=== PATIENT | female | born 2000 | race Hispanic/Latino ===

== ENCOUNTER 2018-07-05 23:12 | Inpatient (IN) | payer OTHER ==
[~2018-07-05] VITALS: Ht 167.6 cm; Wt 63.4 kg
[2018-07-06 00:42] LABS: BASO # 0.1 10^3/uL (0.0-0.2); EOS # 0.3 10^3/uL (0.0-0.50); EOS % 3.2 % (0.0-3.0); HEMATOCRIT 37.8 % (36.0-47.0); HEMOGLOBIN 12.6 g/dl (12.0-15.5); LYMPH % 36.8 % (24.0-44.0); MEAN CORPUSCULAR HEMOGLOBIN 29.9 pg (27.0-33.0); MEAN CORPUSCULAR HGB CONC 33.3 g/dl (32.0-36.5); MEAN CORPUSCULAR VOLUME 89.6 fl (80.0-96.0); MONO # 0.6 10^3/uL (0.0-0.8); MONO % 6.8 % (0.0-5.0); NEUTROPHILS # 4.3 10^3/uL (1.8-7.7); NEUTROPHILS % 52.1 % (36.0-66.0); PLATELET COUNT, AUTOMATED 250 10^3/uL (150-450); RED BLOOD COUNT 4.22 10^6/uL (4.00-5.40); WHITE BLOOD COUNT 8.2 10^3/uL (4.0-10.0)
[2018-07-06 01:35] LABS: ALBUMIN 3.5 GM/DL (3.2-5.2); ALT/SGPT 44 U/L (12-78); BILIRUBIN,DIRECT < 0.1 MG/DL (0.0-0.2); BILIRUBIN,TOTAL 0.3 MG/DL (0.2-1.0); BLOOD UREA NITROGEN 14 MG/DL (7-18); CALCIUM LEVEL 8.3 MG/DL (8.5-10.1); CARBON DIOXIDE LEVEL 24 MEQ/L (21-32); CHLORIDE LEVEL 108 MEQ/L (98-107); CPK CREATINE PHOSPHOKINASE 7562 U/L (26-192); CREATININE FOR GFR 0.81 MG/DL (0.55-1.30); GLUCOSE, FASTING 91 MG/DL (70-100); LIPASE 189 U/L (73-393); POTASSIUM SERUM 3.6 MEQ/L (3.5-5.1); SODIUM LEVEL 139 MEQ/L (136-145); TOTAL PROTEIN 7.4 GM/DL (6.4-8.2)
[2018-07-06] MEDS ORDERED: NS 1,830 ML in APPROPRIATE DILUENT 1 EA IV ONE (02:15)
[2018-07-06 02:21] LABS: HCG, SERUM QUALITATIVE NEGATIVE (NEGATIVE)
[2018-07-06 02:37] LABS: INR 0.96; PROTHROMBIN TIME 12.9 SECONDS (12.1-14.4)
[2018-07-06 02:38] LABS: PARTIAL THROMBOPLASTIN TIME 28.2 SECONDS (25.4-37.6)
[2018-07-06] MEDS ORDERED: ISOVUE-370 76% 100ML VIAL (Q9967) As Ordered ONE (03:11)
--- NOTE | 2018-07-06 04:12 | REPVR ---
EXAM: CT Abdomen and Pelvis With Contrast EXAM DATE/TIME: 07/06/2018 3:07 AM CLINICAL HISTORY: 17 years old, female; Abdominal pain; Localized; Lower; Additional info: Lower abd pain, vomiting TECHNIQUE: Imaging protocol: Axial computed tomography images of the abdomen and pelvis with intravenous contrast. Coronal and sagittal reformatted images were created and reviewed. Radiation optimization: All CT scans at this facility use at least one of these dose optimization techniques: automated exposure control; mA and/or kV adjustment per patient size (includes targeted exams where dose is matched to clinical indication); or iterative reconstruction. Contrast material: ISO; Contrast volume: 100 ml; Contrast route: AC; COMPARISON: No relevant prior studies available. FINDINGS: ABDOMEN: Liver: There is low attenuation adjacent to the falciform ligament of the liver consistent with focal fatty infiltration. Gallbladder and bile ducts: The gallbladder is contracted with no stones. There is gallbladder wall enhancement and pericholecystic fluid or wall edema. Pancreas: Normal. No ductal dilation. Spleen: Normal. No splenomegaly. Adrenals: Normal. No mass. Kidneys and ureters: Normal. No hydronephrosis. Stomach and bowel: Normal. No obstruction. No mucosal thickening. Appendix: A normal appendix is seen. PELVIS: Bladder: Unremarkable as visualized. Reproductive: Right ovarian follicle measuring 17 mm. ABDOMEN and PELVIS: Intraperitoneal space: Normal. No free air. No significant fluid collection. Bones/joints: No acute fracture. No dislocation. Soft tissues: Unremarkable. Vasculature: Normal. No abdominal aortic aneurysm. Lymph nodes: Normal. No enlarged lymph nodes. IMPRESSION: 1. Contracted gallbladder with no stones. There is mucosal enhancement with pericholecystic fluid or wall edema. 2. Otherwise negative CT abdomen/pelvis. Electronically signed by: Keegan Potter On 07/06/2018 04:11:37 AM
[2018-07-06] MEDS ORDERED: LR 1,000 ML IV SCH (04:30)
--- NOTE | 2018-07-06 05:03 | REPVR ---
EXAM: US Abdomen Limited, Right Upper Quadrant EXAM DATE/TIME: 07/06/2018 4:54 AM CLINICAL HISTORY: 17 years old, female; Abdominal pain; Epigastric; Additional info: Abnormal gb on CT, vomiting TECHNIQUE: Imaging protocol: Real-time ultrasound of the abdomen with image documentation. Examination was focused on the right upper quadrant. COMPARISON: CT ABD/PEL W/IV CONTRAST ONLY 07/06/2018 3:08 AM FINDINGS: Liver: The liver demonstrates no focal defects. Ill-defined echogenic area in the right hepatic lobe measuring 2.9 x 1.3 x 3.1 cm which may reflect a hemangioma. Gallbladder: Contracted gallbladder with wall thickening measuring 7 mm. No gallstones are seen. There is a negative sono Rodriguez's sign. Common bile duct: The common bile duct measures 3 mm. Pancreas: The pancreas is normal. Right kidney: The right kidney is normal measuring 11.5 cm IMPRESSION: 1. Contracted gallbladder with wall thickening measuring 7 mm. No gallstones are seen and there is a negative sono Rodriguez's sign. 2. Ill-defined echogenic area in the right hepatic lobe measuring 2.9 x 1.3 x 3.1 cm which may reflect a hemangioma. Electronically signed by: Keegan Potter On 07/06/2018 05:02:45 AM
[2018-07-06] MEDS ORDERED: METAMUCIL (PSYLLIUM) PACKET PO PRN (06:15)
[2018-07-06] MEDS ORDERED: MOM 30ML SUSPENSION UDC PO PRN (06:15)
[2018-07-06] MEDS ORDERED: ACETAMINOPHEN TAB 650MG DOSE (2X325MG) PO PRN (06:15)
--- NOTE | 2018-07-06 06:29 | HPEPDOC ---
General Date of Admission July 05, 2018 at 23:13 Chief Complaint The patient is a 17-year-old female admitted with a reason for visit of Rhabdomy olysis. Source: Patient Exam Limitations: No limitations Severity: Mild History of Present Illness 17 yo female in without significant medical Hx presented to [facility] ER with nausea, vomiting, diffuse muscle pain, diffuse ecchymosis in extremities, and reported intermittent bladder pain. Pt reported that on 07/04/18 she had physical training in preparation for her PT training test this coming Sunday. R eported diffuse muscle ache, extremity ecchymosis, and intermittent bladder pain since the physical training. She reported the intermittent bladder pain is unrelated to urination, denies dysuria or urgency. She reported little amount of urination when she uses the restroom with frequent urination. Initially urine color is dark yellow and now it's coloring checker color. Reported diffuse muscle soreness including abdominal muscle Denies fever, chills, chest pain, dyspnea, cough, abdominal pain, or numbness/tingling/loss of sensation. Allergies Coded Allergies: No Known Allergies (Unverified , 07/06/18) Past Medical History Medical History Denies Surgical History Denies Family History Significant Family History: Cancer (paternal grandmother breast CA), Diabetes (maternal grandmother) Social History * Smoker: current smoker (pt rolls her own cig) Alcohol: Denies Drugs: denies Recent Travel/Sick Contacts: Denies: Recent sick contacts lives at home with . In A-FIB/CHADSVASC A-FIB History Current/History of A-Fib/PAF?: No Review of Systems Constitutional: Reports: Fatigue (reported d/t lack of sleep overnight, no fatigue prior); Denies: Chills, Fever Skin: Reports: Bruising; Denies: Breakdown Pulmonary: Denies: Dyspnea, Cough, Pleuritic Chest Pain Cardiovascular: Denies: Chest Pain, Palpitations Gastrointestinal: Reports: Nausea, Vomiting, Constipation (constipation one small bowel movement every 3 days); Denies: Abdominal Pain, Diarrhea Genitourinary: Reports: Frequency; Denies: Dysuria, Incontinence Hematologic: Reports: Bruising Neurological: Denies: Numbness Physical Examination General Exam: Positive: Alert, Cooperative, Mild Distress Eye Exam: Positive: Conjunctiva & lids normal; Negative: Sclera icteric ENT Exam: Positive: Atraumatic, Mucous membr. moist/pink Neck Exam: Positive: Supple Chest Exam: Positive: Clear to auscultation, Normal air movement; Negative: Rales, Rhonchi, Wheezing Heart Exam: Positive: Rate Normal, Regular Rhythm, Normal S1, Normal S2; Negative: Murmurs Abdomen Exam: Positive: BS Hypoactive, Soft, Tenderness (increased soreness upon palpation in the abdomen region) Extremity Exam: Positive: Normal pulses, Other; Negative: Cyanosis, Edema, Swelling Skin Exam: Positive: Nl turgor and temperature, Other skin issue (diffuse ecchymosis in 4 extremities noted) Neuro Exam: Positive: Normal Speech, Normal Tone Psych Exam: Positive: Mental status NL, Mood NL, Oriented x 3 Vital Signs Vital Signs Date Time Temp Pulse Resp B/P (MAP) Pulse Ox O2 Delivery O2 Flow Rate FiO2 07/06/18 01:53 07/05/18 23:13 97.4 64 16 98 Room Air Laboratory Data Labs 24H Laboratory Tests 2 07/06/18 00:23: Immature Granulocyte % (Auto) 0.1, White Blood Count 8.2, Red Blood Count 4.22, Hemoglobin 12.6, Hematocrit 37.8, Mean Corpuscular Volume 89.6, Mean Corpuscular Hemoglobin 29.9, Mean Corpuscular Hemoglobin Concent 33.3, Red Cell Distribution Width 12.9, Platelet Count 250, Neutrophils (%) (Auto) 52.1, Lymphocytes (%) (Auto) 36.8, Monocytes (%) (Auto) 6.8H, Eosinophils (%) (Auto) 3.2H, Basophils (%) (Auto) 1.0, Neutrophils # (Auto) 4.3, Lymphocytes # (Auto) 3.0, Monocytes # (Auto) 0.6, Eosinophils # (Auto) 0.3, Basophils # (Auto) 0.1, Nucleated Red Blood Cells % (auto) 0.0, Urine Color YELLOW, Urine Appearance HAZY, Urine pH 6.0, Urine Specific [place] 1.018, Urine Protein 1+H, Urine Glucose (UA) NEGATIVE, Urine Ketones 1+H, Urine Blood NEGATIVE, Urine Nitrite NEGATIVE, Urine Bilirubin NEGATIVE, Urine Urobilinogen 0.2, Urine Leukocyte Esterase NEGATIVE, Urine WBC (Auto) 4H, Urine RBC (Auto) 5H, Urine Hyaline Casts (Auto) 1, Urine Bacteria (Auto) 1+H, Urine Squamous Epithelial Cells 12, Urine Transitional Epithelial Cells 2, Urine Mucus (Auto) MODERATE, Urine Sperm (Auto) , Anion Gap 7L, Calcium Level 8.3L, Aspartate Amino Transf (AST/SGOT) 117H, Alanine Aminotransferase (ALT/SGPT) 44, Alkaline Phosphatase 102, Total Bilirubin 0.3, Direct Bilirubin < 0.1, Total Creatine Kinase 7562H, Total Protein 7.4, Albumin 3.5, Albumin/Globulin Ratio 0.90L, Lipase 189, Human Chorionic Gonadotropin, Qual NEGATIVE 07/06/18 02:19: Prothrombin Time 12.9, Prothromb Time International Ratio 0.96, Activated Partial Thromboplast Time 28.2 07/06/18 04:18: Urine Myoglobin NEGATIVE CBC/BMP Laboratory Tests 07/06/18 00:23 Red Blood Count 4.22, Mean Corpuscular Volume 89.6, Mean Corpuscular Hemoglobin 29.9, Mean Corpuscular Hemoglobin Concent 33.3, Red Cell Distribution Width 12.9, Neutrophils (%) (Auto) 52.1, Lymphocytes (%) (Auto) 36.8, Monocytes (%) (Auto) 6.8 H, Eosinophils (%) (Auto) 3.2 H, Basophils (%) (Auto) 1.0, Neut rophils # (Auto) 4.3, Lymphocytes # (Auto) 3.0, Monocytes # (Auto) 0.6, Eosinophils # (Auto) 0.3, Basophils # (Auto) 0.1 Problems (1) Rhabdomyolysis Status: Acute Problem Text: rhabdomyolysis likely from physical activities. Small amount of urine with frequent urinations, nausea, vomiting, diffuse muscle soreness, ecch ymosis, and elevated total creatinine kinase. NO urine myoglobin. No CHRISTINE. IV NS at 200ml/hr, may increase rate if creatinine kinase did not improve. Vital signs as scheduled and cont to monitor the pt. (2) Constipation Problem Text: reported small amount of hard pellet stool once every 3 days. Denies abdominal pain. Reported nausea/vomiting for about 2 weeks which was prior to physical training . Metamucil and milk of magnesia ordered. CT abd/pelvis report no signs of bowel obstruction. Cont to monitor the pt Plan / VTE VTE Prophylaxis Ordered?: Yes (TEDS and SCD) Plan IVF: Initiate Diagnostics: Repeat Labs in ITALIA LEWIS DO July 06, 2018 06:29
[2018-07-06 06:30] VITALS: BP 132/84
[2018-07-06] MEDS ORDERED: NS 1,000 ML IV SCH (06:30)
[2018-07-06 08:00] VITALS: BP 125/66
[2018-07-06] MEDS ORDERED: traMADol 50 MG TAB PO ONE (10:30)
[2018-07-06] MEDS ORDERED: FIORICET TAB PO ONE (10:30)
[2018-07-06] MEDS: NS 1,000 ML IV SCH ×2 (12:35→21:58)
[2018-07-06 16:00] VITALS: BP 124/61
[2018-07-06] MEDS: traMADol 50 MG TAB PO PRN (18:58)
[2018-07-06] MEDS: FIORICET TAB PO PRN (19:57)
[2018-07-06 20:00] VITALS: BP 135/79
[2018-07-07] VITALS: BP 121/62
[2018-07-07] MEDS: NS 1,000 ML IV SCH ×3 (06:15→17:13)
[2018-07-07 06:30] LABS: HEMATOCRIT 36.1 % (36.0-47.0); HEMOGLOBIN 11.8 g/dl (12.0-15.5); MEAN CORPUSCULAR HEMOGLOBIN 29.5 pg (27.0-33.0); MEAN CORPUSCULAR HGB CONC 32.7 g/dl (32.0-36.5); MEAN CORPUSCULAR VOLUME 90.3 fl (80.0-96.0); PLATELET COUNT, AUTOMATED 213 10^3/uL (150-450)
[2018-07-07 07:13] LABS: BLOOD UREA NITROGEN 2 MG/DL (7-18); CARBON DIOXIDE LEVEL 27 MEQ/L (21-32); CHLORIDE LEVEL 110 MEQ/L (98-107); CPK CREATINE PHOSPHOKINASE 6905 U/L (26-192); CREATININE FOR GFR 0.65 MG/DL (0.55-1.30); GLUCOSE, FASTING 78 MG/DL (70-100); POTASSIUM SERUM 3.7 MEQ/L (3.5-5.1); SODIUM LEVEL 142 MEQ/L (136-145)
[2018-07-07 08:08] VITALS: BP 110/62
[2018-07-07] MEDS: FIORICET TAB PO PRN ×3 (08:12→21:07)
[2018-07-07] MEDS ORDERED: NS 1,000 ML IV ONE (08:30)
--- NOTE | 2018-07-07 10:24 | IPNPDOC ---
Date Seen The patient was seen on 07/07/18. Progress Note SUBJECTIVE: Pt still c/o generalized muscle aches and decreased oral liquid intake. appetite has been poor but no nausea or vomiting. still c/o urinary urgency and frequency despite negative ua. denies any vaginal discharge, or history of gc/chlamydia. ck still >6000. respiratory panel is negative and creatinine wnl. OBJECTIVE: Physical Examination VITALS: PLS SEE BELOW General Exam: Positive: Alert, Cooperative, Mild Distress Eye Exam: Positive: Conjunctiva & lids normal; Negative: Sclera icteric ENT Exam: Positive: Atraumatic, Mucous membr. moist/pink Neck Exam: Positive: Supple Chest Exam: Positive: Clear to auscultation, Normal air movement; Negative: Rales, Rhonchi, Wheezing Heart Exam: Positive: Rate Normal, Regular Rhythm, Normal S1, Normal S2; Negative: Murmurs Abdomen Exam: Positive: BS Hypoactive, Soft, Tenderness (increased soreness upon palpation in the abdomen region) Extremity Exam: Positive: Normal pulses, Other; Negative: Cyanosis, Edema, Swelling Skin Exam: Positive: Nl turgor and temperature, Other skin issue (diffuse ecchymosis in 4 extremities noted) Neuro Exam: Positive: Normal Speech, Normal Tone Psych Exam: Positive: Mental status NL, Mood NL, Oriented x 3 LABORATORY DATA, IMAGING STUDIES, MICROBIOLOGY: PLS SEE BELOW ASSESSMENT AND PLAN: 17 yo female in without significant medical Hx presented to [facility] ER with nausea, vomiting, diffuse muscle pain, diffuse ecchymosis in extremities, and reported intermittent bladder pain. Pt reported that on 07/04/18 she had physical training in preparation for her PT training test this coming Sunday. Reported diffuse muscle ache, extremity ecchymosis, and intermittent bladder pain since the physical training. She reported the intermittent bladder pain is unrelated to urination, denies dysuria or urgency. She reported little amount of urination when she uses the restroom with frequent urination. Initially urine color is dark yellow and now it's dry dip worker color. Reported diffuse muscle soreness including abdominal muscle Denies fever, chills, chest pain, dyspnea, cough, abdominal pain, or numbness/tingling/loss of sensation. Rhabdomyolysis rhabdomyolysis likely from physical activities. Small amount of urine with frequent urinations, nausea, vomiting, diffuse muscle soreness, ecchymosis, and elevated total creatinine kinase. NO urine myoglobin. No CHRISTINE. IV NS at 200ml/hr, may increase rate if creatinine kinase did not improve. Vital signs as scheduled and cont to monitor the pt. Pt still c/o generalized muscle aches and decreased oral liquid intake. appetite has been poor but no nausea or vomiting. still c/o urinary urgency and frequency despite negative ua. denies any vaginal discharge, or history of gc/chlamydia. ck still >6000. respiratory panel is negative and creatinine wnl. urinary urgency without vaginal discharge discussed possibility of std especially chlamydia. pt denies any vaginal discharge, and refuses testing at this time. ck still >6000. respiratory panel is negative and creatinine wnl. Constipation Problem Text: reported small amount of hard pellet stool once every 3 days. Denies abdominal pain. Reported nausea/vomiting for about 2 weeks which was prior to physical training . Metamucil and milk of magnesia ordered. CT abd/pelvis report no signs of bowel obstruction. Cont to monitor the pt Plan / VTE VTE Prophylaxis Ordered?: Yes (TEDS and SCD) A-FIB/CHADSVASC A-FIB History Current/History of A-Fib/PAF?: No Current Oral Anticoagulant The: No VS, I&O, 24H, Fishbone Vital Signs/I&O Vital Signs Date Time Temp Pulse Resp B/P (MAP) Pulse Ox O2 Delivery O2 Flow Rate FiO2 07/07/18 00:00 97.7 65 18 121/62 (81) 100 07/06/18 06:24 Room Air I&O- Last 24 Hours up to 6 AM 07/07/18 06:00 Intake Total 4430 ml Output Total 3800 ml Balance 630 ml Laboratory Data 24H LABS Laboratory Tests 2 07/06/18 12:51: Total Creatine Kinase 7202H 07/07/18 06:11: Total Creatine Kinase 6905H, Nucleated Red Blood Cells % (auto) 0.0, Anion Gap 5L, Blood Urea Nitrogen 2#L, Creatinine 0.65, Sodium Level 142, Potassium Level 3.7, Chloride Level 110H, Carbon Dioxide Level 27, Calcium Level 8.0L CBC/BMP Laboratory Tests 07/07/18 06:11 Red Blood Count 4.00, Mean Corpuscular Volume 90.3, Mean Corpuscular Hemoglobin 29.5, Mean Corpuscular Hemoglobin Concent 32.7, Red Cell Distribution Width 12.8, Calcium Level 8.0 L Microbiology Microbiology 07/06/18 Respiratory Virus Panel (PCR) ([facility]) - Final, Complete JAMI ALLEN MD July 07, 2018 07:18
[2018-07-07] MEDS: ONDANSETRON 4MG/2ML VIAL (J2405) IV PRN ×2 (14:36→23:16)
[2018-07-07 16:06] VITALS: BP 125/65
[2018-07-07 18:09] LABS: CHLAMYDIA DNA AMPLIFICATION NEGATIVE (NEGATIVE); GC DNA AMPLIFICATION NEGATIVE (NEGATIVE)
[2018-07-07 20:00] VITALS: BP 109/59
[2018-07-07] MEDS: traMADol 50 MG TAB PO PRN (21:07)
[2018-07-08] VITALS: BP 113/59
[2018-07-08] MEDS: NS 1,000 ML IV SCH ×6 (01:00→18:38)
[2018-07-08] MEDS: PERCOCET 5MG/325MG TAB PO PRN ×4 (01:18→18:49)
[2018-07-08] MEDS: ONDANSETRON 4MG/2ML VIAL (J2405) IV PRN ×3 (06:42→23:23)
[2018-07-08 06:53] LABS: HEMATOCRIT 36.3 % (36.0-47.0); HEMOGLOBIN 12.1 g/dl (12.0-15.5); MEAN CORPUSCULAR HEMOGLOBIN 29.5 pg (27.0-33.0); MEAN CORPUSCULAR HGB CONC 33.3 g/dl (32.0-36.5); MEAN CORPUSCULAR VOLUME 88.5 fl (80.0-96.0); PLATELET COUNT, AUTOMATED 218 10^3/uL (150-450); WHITE BLOOD COUNT 6.2 10^3/uL (4.0-10.0)
[2018-07-08 07:14] LABS: BLOOD UREA NITROGEN 3 MG/DL (7-18); CALCIUM LEVEL 7.7 MG/DL (8.5-10.1); CARBON DIOXIDE LEVEL 27 MEQ/L (21-32); CHLORIDE LEVEL 108 MEQ/L (98-107); CREATININE FOR GFR 0.65 MG/DL (0.55-1.30); GLUCOSE, FASTING 77 MG/DL (70-100); SODIUM LEVEL 140 MEQ/L (136-145)
[2018-07-08] MEDS ORDERED: PHENAZOPYRIDINE 100 MG TAB PO ONE (07:45)
[2018-07-08] MEDS ORDERED: POTASSIUM CHLORIDE 10 MEQ SR TABLET PO ONE (08:00)
[2018-07-08 08:24] VITALS: BP 123/78
[2018-07-08 09:14] LABS: CPK CREATINE PHOSPHOKINASE 7813 U/L (26-192)
[2018-07-08] MEDS ORDERED: NS 1,000 ML IV ONE (10:15)
--- NOTE | 2018-07-08 10:19 | IPNPDOC ---
Date Seen The patient was seen on 07/08/18. Progress Note SUBJECTIVE: c/o abd pain/constipation, and vomitted this am with bm after bowel regimen. k is low. Pt still c/o generalized muscle aches and decreased oral liquid intake. appetite has been poor.. still c/o urinary urgency and frequency despite negative ua. denies any vaginal discharge, or history of gc/chlamydia. urine gc/chl negative. ck still 7800. respiratory panel is negative and creatinine wnl. OBJECTIVE: Physical Examination VITALS: PLS SEE BELOW General Exam: Positive: Alert, Cooperative, Mild Distress Eye Exam: Positive: Conjunctiva & lids normal; Negative: Sclera icteric ENT Exam: Positive: Atraumatic, Mucous membr. moist/pink Neck Exam: Positive: Supple Chest Exam: Positive: Clear to auscultation, Normal air movement; Negative: Rales, Rhonchi, Wheezing Heart Exam: Positive: Rate Normal, Regular Rhythm, Normal S1, Normal S2; Negative: Murmurs Abdomen Exam: Positive: BS Hypoactive, Soft, Tenderness (increased soreness upon palpation in the abdomen region) Extremity Exam: Positive: Normal pulses, Other; Negative: Cyanosis, Edema, Swelling Skin Exam: Positive: Nl turgor and temperature, Other skin issue (diffuse ecchymosis in 4 extremities noted) Neuro Exam: Positive: Normal Speech, Normal Tone Psych Exam: Positive: Mental status NL, Mood NL, Oriented x 3 LABORATORY DATA, IMAGING STUDIES, MICROBIOLOGY: PLS SEE BELOW ASSESSMENT AND PLAN: 17 yo female in without significant medical Hx presented to [facility] ER with nausea, vomiting, diffuse muscle pain, diffuse ecchymosis in extremities, and reported intermittent bladder pain. Pt reported that on 07/04/18 she had physical training in preparation for her PT training test this coming Sunday. Reported diffuse muscle ache, extremity ecchymosis, and intermittent bladder pain since the physical training. She reported the intermittent bladder pain is unrelated to urination, denies dysuria or urgency. She reported little amount of urination when she uses the restroom with frequent urination. Initially urine color is dark yellow and now it's barkeeper color. Reported diffuse muscle soreness including abdominal muscle Denies fever, chills, chest pain, dyspnea, cough, abdominal pain, or numbness/tingling/loss of sensation. Rhabdomyolysis rhabdomyolysis likely from physical activities. Small amount of urine with frequent urinations, nausea, vomiting, diffuse muscle soreness, ecchymosis, and elevated total creatinine kinase. NO urine myoglobin. No CHRISTINE. IV NS at 200ml/hr, may increase rate if creatinine kinase did not improve. Vital signs as scheduled and cont to monitor the pt. Pt still c/o generalized muscle aches and decreased oral liquid intake. appetite has been poor but no nausea or vomiting. still c/o urinary urgency and frequency despite negative ua. denies any vaginal discharge, or history of gc/chlamydia. ck still >6000. respiratory panel is negative and creatinine wnl. urinary urgency without vaginal discharge discussed possibility of std especially chlamydia. pt denies any vaginal discharge, and refuses testing at this time. ck still >6000. respiratory panel is negative and creatinine wnl. Constipation s/p bowel regimen with loose bm and emesis Problem Text: reported small amount of hard pellet stool once every 3 days. Denies abdominal pain. Reported nausea/vomiting for about 2 weeks which was prior to physical training . Metamucil and milk of magnesia ordered. CT abd/pelvis report no signs of bowel obstruction. Cont to monitor the pt Hypokalemia supplemented. check mg and supplement if <2. Plan / VTE VTE Prophylaxis Ordered?: Yes (TEDS and SCD) A-FIB/CHADSVASC SCREEN A-FIB/CHADSVASC A-FIB History Current/History of A-Fib/PAF?: No Current Oral Anticoagulant The: No A-FIB/CHADSVASC A-FIB History Current/History of A-Fib/PAF?: No Current Oral Anticoagulant The: No VS, I&O, 24H, Fishbone Vital Signs/I&O Vital Signs Date Time Temp Pulse Resp B/P (MAP) Pulse Ox O2 Delivery O2 Flow Rate FiO2 07/08/18 08:24 98.0 66 16 123/78 (93) 98 07/06/18 06:24 Room Air I&O- Last 24 Hours up to 6 AM 07/08/18 06:00 Intake Total 5160 ml Output Total 4250 ml Balance 910 ml Laboratory Data 24H LABS Laboratory Tests 2 07/07/18 16:12: Chlamydia trachomatis DNA ([facility]) NEGATIVE, Neisseria gonorrhoeae DNA ([facility]) NEGATIVE 07/08/18 06:12: Nucleated Red Blood Cells % (auto) 0.0, Anion Gap 5L, Blood Urea Nitrogen 3L, Creatinine 0.65, Sodium Level 140, Potassium Level 3.0L, Chloride Level 108H, Carbon Dioxide Level 27, Calcium Level 7.7L, Total Creatine Kinase 7813H 07/08/18 06:40: Urine Color STRAW, Urine Appearance CLEAR, Urine pH 7.0, Urine Specific [place] 1.008, Urine Protein NEGATIVE, Urine Glucose (UA) NEGATIVE, Urine Ketones 1+H, Urine Blood NEGATIVE, Urine Nitrite NEGATIVE, Urine Bilirubin NEGATIVE, Urine Urobilinogen 0.2, Urine Leukocyte Esterase NEGATIVE, Urine WBC (Auto) 3, Urine RBC (Auto) 1, Urine Hyaline Casts (Auto) 0, Urine Bacteria (Auto) NEGATIVE, Urine Squamous Epithelial Cells 3, Urine Sperm (Auto) CBC/BMP Laboratory Tests 07/08/18 06:12 Red Blood Count 4.10, Mean Corpuscular Volume 88.5, Mean Corpuscular Hemoglobin 29.5, Mean Corpuscular Hemoglobin Concent 33.3, Red Cell Distribution Width 12.8, Calcium Level 7.7 L Microbiology Microbiology 07/06/18 Respiratory Virus Panel (PCR) ([facility]) - Final, Complete JAMI ALLEN MD July 08, 2018 10:19
[2018-07-08 16:55] VITALS: BP 104/56
[2018-07-08] MEDS: PHENAZOPYRIDINE 100 MG TAB PO SCH ×2 (17:18→20:27)
[2018-07-08] MEDS: traMADol 50 MG TAB PO PRN ×2 (17:19→23:25)
[2018-07-08 19:39] LABS: BLOOD UREA NITROGEN 2 MG/DL (7-18); CALCIUM LEVEL 7.7 MG/DL (8.5-10.1); CARBON DIOXIDE LEVEL 25 MEQ/L (21-32); CHLORIDE LEVEL 115 MEQ/L (98-107); CPK CREATINE PHOSPHOKINASE 6331 U/L (26-192); GLUCOSE, FASTING 90 MG/DL (70-100); POTASSIUM SERUM 4.1 MEQ/L (3.5-5.1); SODIUM LEVEL 144 MEQ/L (136-145)
[2018-07-08 20:00] VITALS: BP 128/75
[2018-07-09] VITALS: BP 140/75
[2018-07-09] MEDS: NS 1,000 ML IV SCH ×3 (01:27→14:00)
[2018-07-09 07:10] LABS: HEMOGLOBIN 11.4 g/dl (12.0-15.5); MEAN CORPUSCULAR HEMOGLOBIN 30.1 pg (27.0-33.0); MEAN CORPUSCULAR HGB CONC 32.6 g/dl (32.0-36.5); MEAN CORPUSCULAR VOLUME 92.3 fl (80.0-96.0); PLATELET COUNT, AUTOMATED 211 10^3/uL (150-450); RED BLOOD COUNT 3.79 10^6/uL (4.00-5.40); WHITE BLOOD COUNT 7.2 10^3/uL (4.0-10.0)
[2018-07-09 08:00] VITALS: BP 111/58
[2018-07-09 08:02] LABS: BLOOD UREA NITROGEN 2 MG/DL (7-18); CALCIUM LEVEL 7.7 MG/DL (8.5-10.1); CARBON DIOXIDE LEVEL 26 MEQ/L (21-32); CHLORIDE LEVEL 112 MEQ/L (98-107); CPK CREATINE PHOSPHOKINASE 4310 U/L (26-192); CREATININE FOR GFR 0.73 MG/DL (0.55-1.30); GLUCOSE, FASTING 94 MG/DL (70-100); POTASSIUM SERUM 3.9 MEQ/L (3.5-5.1); SODIUM LEVEL 143 MEQ/L (136-145)
[2018-07-09] MEDS: PHENAZOPYRIDINE 100 MG TAB PO SCH ×3 (08:43→20:24)
[2018-07-09] MEDS: PANTOPRAZOLE 40MG TAB (PROTONIX) PO SCH (09:52)
[2018-07-09] MEDS: PERCOCET 5MG/325MG TAB PO PRN ×2 (09:55→16:42)
[2018-07-09 13:36] LABS: H PYLORI QUALITATIVE IgG NEGATIVE (NEGATIVE)
[2018-07-09 14:16] LABS: ANTI DOUBLE STRAND-DNA AB <1 IU/mL (0-9); ANTINUCLEAR ANTIBODIES DIRECT Positive (Negative); RNP ANTIBODIES 1.1 AI (0.0-0.9); SJOGREN'S ANTI SS-A <0.2 AI (0.0-0.9); SJOGREN'S ANTI SS-B <0.2 AI (0.0-0.9); SMITH ANTIBODIES <0.2 AI (0.0-0.9)
--- NOTE | 2018-07-09 14:19 | IPNPDOC ---
Text Note Date of Service The patient was seen on 07/09/18. NOTE DATE: 07/09/18 LEANDER Thacker was seen and examined at bedside this morning. She is lying in bed, answering questions appropriately. No acute events overnight. She complains of diffuse body aches, mild abdominal pain, and nausea. Reports an episode of vomiting and diarrhea yesterday after taking Miralax. Has not vomited since. She also reports urinary urgency and frequency. Most prominent right after she voids. Otherwise denies fever, chills, shortness of breath, cough, chest pain, MEDICATIONS: (see below) ALLERGIES: (see below) OBJECTIVE PHYSICAL EXAM VITALS: (see below) GENERAL: Alert and oriented x3. No acute distress. HEENT: Normocephalic, atraumatic. PERRLA. Sclera nonicteric. Conjunctiva without injection. Mucous membranes moist. CARDIOVASCULAR: Regular rate and rhythm. No murmurs, rubs, or gallops. Normal S1 & S2. No JVD LUNGS: Clear to auscultation bilaterally. No wheezes, rhonchi, or rales. ABDOMEN: Soft, nondistended. Mild tenderness to palpation of left upper quadrant and epigastric area. Normoactive bowel sounds EXTREMITIES: Without lower extremity edema. Dorsalis pedis pulse +2. Diffuse ecchymosis present on forearms and legs bilaterally. NEURO: Mood and affect appropriate. Cranial nerves II-XII grossly intact. 5/5 muscle strength bilaterally. No sensory deficits. Reflexes equal throughout. LABS: (see below) ASSESSMENT This is a 17-year-old female who presented with diffuse body aches and ecchymosis in her bilateral extremities after PT and also ongoing nausea and abdominal pain found to have an elevated CK-MB > 3x the upper limit of normal. PLAN Rhabdomyolysis likely secondary to physical activity - Patient states she "pushed herself" in her recent PT session. - Total creatinine kinase trending down. Urine myoglobin was negative however this does not rule out rhabdomyolysis - No CHRISTINE - Continue IV fluid resuscitation Urinary urgency - UA without evidence of infection - GC/Chlamydia serology negative - Recommend outpatient follow-up with urology Nausea/vomiting - Ongoing nausea, constipation, and decreased appetite x 2 weeks. Associated abdominal pain. CT showed no signs of bowel obstruction. Likely secondary to gastritis. - H. pylori antibodies pending - Will start Protonix DVT porphylaxis - c/w SCDs/TEDs A-FIB/CHADSVASC A-FIB History Current/History of A-Fib/PAF?: No VS,Fishbone, I+O VS, Fishbone, I+O Laboratory Tests 07/08/18 18:09 Calcium Level 7.7 L 07/09/18 06:50 Calcium Level 7.7 L, Red Blood Count 3.79 L, Mean Corpuscular Volume 92.3, Mean Corpuscular Hemoglobin 30.1, Mean Corpuscular Hemoglobin Concent 32.6, Red Cell Distribution Width 13.2 Vital Signs Date Time Temp Pulse Resp B/P (MAP) Pulse Ox O2 Delivery O2 Flow Rate FiO2 07/09/18 10:26 16 07/09/18 08:00 98.3 71 111/58 (75) 97 07/06/18 06:24 Room Air I&O- Last 24 Hours up to 6 AM 07/09/18 06:00 Intake Total 5691 ml Output Total 4500 ml Balance 1191 ml GME ATTESTATION GME ATTESTATION My faculty preceptor for this patient encounter was physically present during the encounter and was fully available. All aspects of the patient interview, examination, medical decision making process, and medical care plan development were reviewed and approved by the faculty preceptor. The faculty preceptor is aware and concurs with the plan as stated in the body of this note and will attest to such by his/her cosignature. ATTENDING NOTE I, Faviola Breaux, have both independently examined this patient as well as reviewed the documentation. I have discussed in detail with the resident the findings and plan of treatment as documented by the resident. I agree with their findings and treatment plan. I will continue to follow the patient and offer further guidance to the patients care as necessary during this hospital stay. GERBER DENT July 09, 2018 14:19 FAVIOLA BREAUX MD July 09, 2018 18:56
[2018-07-09 16:57] VITALS: BP 113/62
[2018-07-09 20:00] VITALS: BP 130/82
[2018-07-10] MEDS: NS 1,000 ML IV SCH ×3 (01:01→09:37)
[2018-07-10] MEDS: traMADol 50 MG TAB PO PRN ×2 (01:01→07:02)
[2018-07-10 01:22] VITALS: BP 118/74
[2018-07-10 07:10] LABS: HEMATOCRIT 37.5 % (36.0-47.0); HEMOGLOBIN 12.2 g/dl (12.0-15.5); MEAN CORPUSCULAR HEMOGLOBIN 29.8 pg (27.0-33.0); MEAN CORPUSCULAR HGB CONC 32.5 g/dl (32.0-36.5); MEAN CORPUSCULAR VOLUME 91.5 fl (80.0-96.0); PLATELET COUNT, AUTOMATED 204 10^3/uL (150-450); WHITE BLOOD COUNT 5.7 10^3/uL (4.0-10.0)
[2018-07-10 07:46] LABS: BLOOD UREA NITROGEN 3 MG/DL (7-18); CALCIUM LEVEL 7.8 MG/DL (8.5-10.1); CARBON DIOXIDE LEVEL 25 MEQ/L (21-32); CHLORIDE LEVEL 109 MEQ/L (98-107); CPK CREATINE PHOSPHOKINASE 2217 U/L (26-192); CREATININE FOR GFR 0.58 MG/DL (0.55-1.30); GLUCOSE, FASTING 78 MG/DL (70-100); POTASSIUM SERUM 3.7 MEQ/L (3.5-5.1); SODIUM LEVEL 140 MEQ/L (136-145)
[2018-07-10 08:00] VITALS: BP 122/69
[2018-07-10] MEDS: PANTOPRAZOLE 40MG TAB (PROTONIX) PO SCH (09:07)
[2018-07-10] MEDS: PHENAZOPYRIDINE 100 MG TAB PO SCH (09:07)
[2018-07-10] MEDS ORDERED: PANT40TA3 PO (09:54)
--- NOTE | 2018-07-10 19:12 | DS.PDOC ---
Discharge Summary General Date of Admission July 07, 2018 at 08:25 Date of Discharge 07/10/18 Attending Physician: FAVIOLA MEJIA MD Discharge Summary PROCEDURES PERFORMED DURING STAY: [None]. ADMITTING DIAGNOSES: 1. Rhabdomyolysis DISCHARGE DIAGNOSES: 1. Rhabdomyolysis 2. Positive AMANDA and LINOTYPE MACHINIST IgG antibody COMPLICATIONS/CHIEF COMPLAINT: Rhabdomyolysis. HISTORY OF PRESENT ILLNESS: Patient is a 17 year old active female with no significant past medical history who presented to the [facility] ER with complaint of nausea, vomiting, diffuse muscle pain, diffuse ecchymosis in extremities, and reported intermittent bladder/urinary discomfort. Patient had stated 07/04/18 she had physical training in preparation for her PT test. Patient had reported that she developed diffuse muscle ache, extremity bruising, and intermittent bladder pain since her physical training. She states that when she tries to urinate only a small amount comes out. She states that she was having some discomfort recently. In the ER the patient was found to have an elevated creatinine kinase. Her urine myoglobin was negative at the time. In addition the patient received a abdominal CT and gall bladder ultrasound. Her CT demonstrated contracted gallbladder with no stones. Mucosal enhancement with pericholecystic fluid or wall edema however, an otherwise negative CT abdomen/pelvis. The patient was fo und to likely have rhabdomyolysis and was admitted to hospitalist service for further evaluation and management HOSPITAL COURSE: Once admitted, the patient received IV fluid hydration. Her creatinine kinase trended down and her muscle pain and weakness started to resolve. The patient did have some nause which did resolve as well. She noted constipation and was started on a bowel regimen. Regarding the patients bladder/urinary discomfort a Urinalysis was ordered which was negative. She received gonorrhea and chlamydia testing which was negative. A vaginitis probe was ordered and is pending. The patient will follow up outpatient for results. Regarding the patients nausea a H. pylori was ordered which is currently pending. In addition, the patient did have a positive AMANDA and LINOTYPE MACHINIST IgG Antibody. The patients symptoms improved overall and she was found fit for discharge. Regarding her positive serology/Immun labs she was referred for outpatient consultation with Rheumatology for possible mixed connective tissue disease. Regarding her bladder discomfort, the patient was given a referral to urology. DISCHARGE MEDICATIONS: Please see below. ALLERGIES: Please see below. PHYSICAL EXAMINATION ON DISCHARGE: VITAL SIGNS: Please see below. GENERAL: Awake alert and oriented. Appears in no acute distress. Lying comfortably in bed. Accompanied by significant other HEENT: Atrumatic normocephalic. Eyes are nonicteric. Trachea is midline. Mucous membranes are pink and moist NECK: No palpable cervical chain lymphadenopathy CARDIOVASCULAR EXAMINATION: Normal S1, S2. Regular rate and rhythm. No clicks rubs or murmurs RESPIRATORY EXAMINATION: Clear vesicular breath sounds bilaterally with good respiratory effort. No wheezes ,rhonci or rales ABDOMINAL EXAMINATION: Soft, nondistended, nontender to palpation of all 4 quadrants. No rebound tenderness or guarding. Positive bowel sounds EXTREMITIES: Bruising of lower and upper extremities bilaterally. Full and equal pulses in bilateral upper and lower extremities SKIN: Multiple bruises in upper and lower extremities NEUROLOGICAL EXAMINATION: No focal neurological deficits. Muscle strength testing 5/5 in upper and lower extremities bilaterally PSYCHIATRIC EXAMINATION: Mood and affect appear appropriate LABORATORY DATA: Please see below. IMAGING: EXAM: CT Abdomen and Pelvis With Contrast EXAM DATE/TIME: 07/06/2018 3:07 AM CLINICAL HISTORY: 17 years old, female; Abdominal pain; Localized; Lower; Additional info: Lower abd pain, vomiting TECHNIQUE: Imaging protocol: Axial computed tomography images of the abdomen and pelvis with intravenous contrast. Coronal and sagittal reformatted images were created and reviewed. Radiation optimization: All CT scans at this facility use at least one of these dose optimization techniques: automated exposure control; mA and/or kV adjustment per patient size (includes targeted exams where dose is matched to clinical indication); or iterative reconstruction. Contrast material: ISO; Contrast volume: 100 ml; Contrast route: AC; COMPARISON: No relevant prior studies available. FINDINGS: ABDOMEN: Liver: There is low attenuation adjacent to the falciform ligament of the liver consistent with focal fatty infiltration. Gallbladder and bile ducts: The gallbladder is contracted with no stones. There is gallbladder wall enhancement and pericholecystic fluid or wall edema. Pancreas: Normal. No ductal dilation. Spleen: Normal. No splenomegaly. Adrenals: Normal. No mass. Kidneys and ureters: Normal. No hydronephrosis. Stomach and bowel: Normal. No obstruction. No mucosal thickening. Appendix: A normal appendix is seen. PELVIS: Bladder: Unremarkable as visualized. Reproductive: Right ovarian follicle measuring 17 mm. ABDOMEN and PELVIS: Intraperitoneal space: Normal. No free air. No significant fluid collection. Bones/joints: No acute fracture. No dislocation. Soft tissues: Unremarkable. Vasculature: Normal. No abdominal aortic aneurysm. Lymph nodes: Normal. No enlarged lymph nodes. IMPRESSION: 1. Contracted gallbladder with no stones. There is mucosal enhancement with pericholecystic fluid or wall edema. 2. Otherwise negative CT abdomen/pelvis. Electronically signed by: Keegan Potter On 07/06/2018 04:11:37 AM EXAM: US Abdomen Limited, Right Upper Quadrant EXAM DATE/TIME: 07/06/2018 4:54 AM CLINICAL HISTORY: 17 years old, female; Abdominal pain; Epigastric; Additional info: Abnormal gb on CT, vomiting TECHNIQUE: Imaging protocol: Real-time ultrasound of the abdomen with image documentation. Examination was focused on the right upper quadrant. COMPARISON: CT ABD/PEL W/IV CONTRAST ONLY 07/06/2018 3:08 AM FINDINGS: Liver: The liver demonstrates no focal defects. Ill-defined echogenic area in the right hepatic lobe measuring 2.9 x 1.3 x 3.1 cm which may reflect a hemangioma. Gallbladder: Contracted gallbladder with wall thickening measuring 7 mm. No gallstones are seen. There is a negative sono Rodriguez's sign. Common bile duct: The common bile duct measures 3 mm. Pancreas: The pancreas is normal. Right kidney: The right kidney is normal measuring 11.5 cm IMPRESSION: 1. Contracted gallbladder with wall thickening measuring 7 mm. No gallstones are seen and there is a negative sono Rodriguez's sign. 2. Ill-defined echogenic area in the right hepatic lobe measuring 2.9 x 1.3 x 3.1 cm which may reflect a hemangioma. Electronically signed by: Keegan Potter On 07/06/2018 05:02:45 AM PROGNOSIS: Good ACTIVITY: [As tolerated]. DIET: As tolerated DISCHARGE PLAN: Patient is to be discharged home. She is to follow-up with her PCP regarding her urine mycoplasma, H. pylori, and hospital follow up. Patient is to follow-up with urology regarding bladder/urinary discomfort. Patient is to follow-up with rheumatology regarding positive RNA antibodies, AMANDA screen positive, and diffuse muscle pain and weakness. DISPOSITION: 01 Home, Self-Care. DISCHARGE INSTRUCTIONS: 1. F/U PCP 1-2 weeks for follow up of lab work 2. F/U urology 3. F/U rheum 4. Remain compliant with treatment plan and medications 5. Return to the ER if you experience any problems DISCHARGE CONDITION: [Stable]. TIME SPENT ON DISCHARGE: Greater than 40 minutes. Vital Signs/I&Os Vital Signs Date Time Temp Pulse Resp B/P (MAP) Pulse Ox O2 Delivery O2 Flow Rate FiO2 07/10/18 08:00 97.6 65 16 122/69 (86) 97 07/06/18 06:24 Room Air I&O- Last 24 Hours up to 6 AM 07/10/18 06:00 Intake Total 7100 ml Output Total 3500 ml Balance 3600 ml Laboratory Data Labs 24H Laboratory Tests 2 07/10/18 06:31: Nucleated Red Blood Cells % (auto) 0.0, Anion Gap 6L, Blood Urea Nitrogen 3L, Creatinine 0.58, Sodium Level 140, Potassium Level 3.7, Chloride Level 109H, Carbon Dioxide Level 25, Calcium Level 7.8L, Total Creatine Kinase 2217H CBC/BMP Laboratory Tests 07/10/18 06:31 Red Blood Count 4.10, Mean Corpuscular Volume 91.5, Mean Corpuscular Hemoglobin 29.8, Mean Corpuscular Hemoglobin Concent 32.5, Red Cell Distribution Width 12.9, Calcium Level 7.8 L Microbiology Microbiology 07/06/18 Respiratory Virus Panel (PCR) (GAUTAM) - Final, Complete Discharge Medications Scheduled Pantoprazole Sodium (Pantoprazole Sodium) 40 Mg Tablet.dr, 40 MG PO DAILY Allergies Coded Allergies: No Known Allergies (Unverified , 07/06/18) GME ATTESTATION GME ATTESTATION My faculty preceptor for this patient encounter was physically present during the encounter and was fully available. All aspects of the patient interview, examination, medical decision making process, and medical care plan development were reviewed and approved by the faculty preceptor. The faculty preceptor is aware and concurs with the plan as stated in the body of this note and will att est to such by his/her cosignature. ATTENDING NOTE I, Faviola Mejia, have both independently examined this patient as well as reviewed the documentation. I have discussed in detail with the resident the findings and plan of treatment as documented by the resident. I agree with their findings and treatment plan. I will continue to follow the patient and offer further guidance to the patients care as necessary during this hospital stay. CELIO HOLLOWAY DO July 10, 2018 19:12 FAVIOLA MEJIA MD July 11, 2018 14:30
[2018-07-12 18:47] LABS: MYCOPLASMA PNEUMONIAE IgG 142 U/mL (0-99); MYCOPLASMA PNEUMONIAE IgM <770 U/mL (0-769)
== END 2018-07-10 11:05 | disposition home or self-care (01) | DRG 558 ==
LOC: M ED 23:12 → M ED INP 23:13 → M PED 07-06 06:30 → OBSVTOIN 07-07 08:25
PROVIDERS: ADMIT Internal Medicine; ATTEND Internal Medicine
DX: M62.82 Rhabdomyolysis (principal); K59.00 Constipation, unspecified

== ENCOUNTER 2018-08-23 11:52 | Emergency (ER) | payer OTHER ==
[~2018-08-23] VITALS: Ht 167.6 cm; Wt 61.4 kg
[~2018-08-23 11:52] MED LIST: PANT40TA3 PO
[2018-08-23 12:44] LABS: BASO % 0.3 % (0.0-1.0); EOS % 0.3 % (0.0-3.0); HEMOGLOBIN 13.4 g/dl (12.0-15.5); LYMPH # 2.6 10^3/uL (1.5-6.5); LYMPH % 28.4 % (24.0-44.0); MEAN CORPUSCULAR HEMOGLOBIN 30.5 pg (27.0-33.0); MEAN CORPUSCULAR HGB CONC 33.5 g/dl (32.0-36.5); MEAN CORPUSCULAR VOLUME 90.9 fl (80.0-96.0); MONO # 0.4 10^3/uL (0.0-0.8); MONO % 4.7 % (0.0-5.0); PLATELET COUNT, AUTOMATED 257 10^3/uL (150-450)
[2018-08-23 12:59] LABS: BLOOD UREA NITROGEN 11 MG/DL (7-18); CALCIUM LEVEL 8.8 MG/DL (8.5-10.1); CARBON DIOXIDE LEVEL 26 MEQ/L (21-32); CHLORIDE LEVEL 106 MEQ/L (98-107); CREATININE FOR GFR 0.78 MG/DL (0.55-1.30); GLUCOSE, FASTING 88 MG/DL (70-100); POTASSIUM SERUM 4.2 MEQ/L (3.5-5.1); SODIUM LEVEL 140 MEQ/L (136-145)
[2018-08-23] MEDS ORDERED: FLAG500T PO (14:11)
[2018-08-23 14:19] VITALS: BP 130/71
[2018-08-23 15:19] LABS: CHLAMYDIA DNA AMPLIFICATION NEGATIVE (NEGATIVE); GC DNA AMPLIFICATION NEGATIVE (NEGATIVE)
== END 2018-08-23 14:20 | disposition home or self-care (01) ==
LOC: M ED 11:52
DX: O23.591 Infection of other part of genital tract in pregnancy, first trimester (principal); Z3A.00 Weeks of gestation of pregnancy not specified

== ENCOUNTER 2018-09-15 00:48 | Emergency (ER) | payer OTHER ==
[~2018-09-15] VITALS: Ht 167.6 cm; Wt 61.4 kg
[2018-09-15 00:48] VITALS: BP 144/81
[~2018-09-15 00:48] MED LIST changes: +FLAG500T PO
[2018-09-15] MEDS: ACETAMINOPHEN 325 MG TAB PO ONE (03:08)
[2018-09-15] MEDS: ONDANSETRON 4 MG ORAL DISINTEGRATING TAB (Q0162 PER 1MG) PO ONE (03:09)
== END 2018-09-15 03:43 | disposition home or self-care (01) ==
LOC: M ED 00:48
DX: O9A.211 Injury, poisoning and certain other consequences of external causes complicating pregnancy, first trimester (principal); S06.0X0A Concussion without loss of consciousness, initial encounter; W22.8XXA Striking against or struck by other objects, initial encounter; Y92.098 Other place in other non-institutional residence as the place of occurrence of the external cause; Z3A.09 9 weeks gestation of pregnancy
CPT/HCPCS: 99283; Q0162

== ENCOUNTER 2018-12-20 01:46 | Emergency (ER) | payer OTHER ==
[~2018-12-20] VITALS: Ht 167.6 cm; Wt 66.8 kg
[2018-12-20 01:46] VITALS: BP 132/89
[2018-12-20] MEDS ORDERED: PRENTAB9 PO (02:20)
== END 2018-12-20 02:15 | disposition admitted as inpatient to this hospital (09) ==
LOC: M ED 01:46
DX: R10.31 Right lower quadrant pain (principal)

== ENCOUNTER 2018-12-20 01:57 | Outpatient (CLI) | payer OTHER ==
[~2018-12-20] VITALS: Ht 167.6 cm; Wt 68.7 kg
[2018-12-20 02:11] VITALS: BP 125/77
[2018-12-20 02:15] VITALS: BP 118/72
[2018-12-20] MEDS ORDERED: PRENTAB9 PO (02:20)
--- NOTE | 2018-12-20 03:22 | IPNPDOC ---
Text Note Date of Service The patient was seen on 12/20/18. NOTE patient is a 18 G1 @ 21wks presents with concern for acute RLQ pain that woke her up at 0030 this AM. Sharp, radiating to left side and back, constant. +nausea from pain. denies vaginal bleeding/discharge. patient had a fall on her right bottoms about 1 week ago. vitals: 118/72, HR: 74, T: 99.2 laying on left side, appears uncomfortable skin moist back with bruise on right glut, mild tenderness abd: tenderness on RLQ, +rebound and guarding uterus at U, nontender when pressed on fundus away from right side. TAUS: +FM, anterior palcenta, no bulging, no e/o abruption, right adnexa appears quiet. fhr: 151 a/p patient is @ 21wks gestation with acute RLQ pain. Patient sent to ED to rule out possible causes of acute pain. Possible appendicitis vs other pelvic etiology of pain such as ovarian cysts/torsion. VS,Fishbone, I+O VS, Fishbone, I+O Vital Signs Date Time Temp Pulse Resp B/P (MAP) Pulse Ox O2 Delivery O2 Flow Rate FiO2 12/20/18 02:23 18 Room Air 12/20/18 02:15 74 118/72 (87) 12/20/18 02:11 99.2 LILLIAN HIDALGO DO Dec 20, 2018 03:22
== END 2018-12-20 02:50 | disposition other institution (70) ==
LOC: M LDO 01:57
PROVIDERS: ATTEND Obstetrics & Gynecology
DX: O23.42 Unspecified infection of urinary tract in pregnancy, second trimester (principal); N13.30 Unspecified hydronephrosis; Z3A.21 21 weeks gestation of pregnancy

== ENCOUNTER 2018-12-20 02:59 | Inpatient (IN) | payer OTHER ==
[~2018-12-20] VITALS: Ht 167.6 cm; Wt 66.8 kg
[~2018-12-20 02:59] MED LIST changes: +PRENTAB9 PO
--- NOTE | 2018-12-20 03:35 | IPNPDOC ---
Text Note Date of Service The patient was seen on 12/20/18. NOTE patient was checked 2 hrs prior and was 8cm. Currently on 10mU/min pit. fht: 145/min-mod inocencio/no accel/early decel toco: ctx q 3-5mins ce: 890/0 a/p patient in active labor, no change since last checked. IUPC placed to assess uterine strength. discussed with patient regarding my concern for slow active phase. Will recheck 2 hrs after having adequate contractions. DO Breanna VS,Greg, I+O VS, Fishbone, I+O Vital Signs Date Time Temp Pulse Resp B/P (MAP) Pulse Ox O2 Delivery O2 Flow Rate FiO2 12/20/18 02:59 98.2 74 16 136/63 (87) 100 Room Air LILLIAN HIDALGO DO Dec 20, 2018 03:35
[2018-12-20 04:15] LABS: BASO % 0.4 % (0.0-1.0); EOS % 0.4 % (0.0-3.0); HEMATOCRIT 28.5 % (36.0-47.0); HEMOGLOBIN 9.9 g/dl (12.0-15.5); LYMPH # 2.4 10^3/uL (1.5-5.0); LYMPH % 24.2 % (24.0-44.0); MEAN CORPUSCULAR HEMOGLOBIN 31.2 pg (27.0-33.0); MEAN CORPUSCULAR HGB CONC 34.7 g/dl (32.0-36.5); MEAN CORPUSCULAR VOLUME 89.9 fl (80.0-96.0); MONO # 0.5 10^3/uL (0.0-0.8); MONO % 4.9 % (0.0-5.0); NEUTROPHILS % 69.4 % (36.0-66.0); PLATELET COUNT, AUTOMATED 198 10^3/uL (150-450); RED BLOOD COUNT 3.17 10^6/uL (4.00-5.40)
--- NOTE | 2018-12-20 05:27 | REPVR ---
PROCEDURE INFORMATION: Exam: US Pelvis Limited, Transabdominal Exam date and time: 12/20/2018 5:03 AM Clinical history: 18 years old, female; Pain; Other: Rlq; Additional info: Rlq pain R/O appendicitis TECHNIQUE: Imaging protocol: Real-time transabdominal pelvic ultrasound with image documentation. Limited exam. COMPARISON: CT ABD/PEL W/IV CONTRAST ONLY 07/06/2018 3:08 AM FINDINGS: Right adnexa: The right ovary measures 2.7 x 1.3 x 2.4 cm and demonstrates blood flow. Appendix: The appendix is not seen. Gestation: Intrauterine fetus with heart beat of 153 beats per minute. Other findings: Prominent adnexal vasculature. IMPRESSION: 1. Gravid uterus with live intrauterine fetus. 2. Normal right ovary with blood flow. 3. The appendix is not seen. Appendicitis is not excluded. Electronically signed by: Keegan Potter On 12/20/2018 05:27:26 AM
--- NOTE | 2018-12-20 05:30 | REPVR ---
PROCEDURE INFORMATION: Exam: US Abdomen Limited, Right Upper Quadrant Exam date and time: 12/20/2018 5:03 AM Clinical history: 18 years old, female; Abdominal pain; Flank; Right lower quadrant (rlq); ; Additional info: Ruq pain TECHNIQUE: Imaging protocol: Real-time ultrasound of the abdomen with image documentation. Examination was focused on the right upper quadrant. COMPARISON: GALLBLADDER US 07/06/2018 4:40 AM FINDINGS: Liver: The liver demonstrates no focal defects. Gallbladder: The gallbladder demonstrates no stones and no wall thickening measuring 2 mm. There is a negative sono Rodriguez's sign. Common bile duct: The common bile duct measures 2 mm. Pancreas: The pancreas is normal. Right kidney: Moderate right hydronephrosis. The right kidney measures 12.6 cm. IMPRESSION: 1. Moderate right hydronephrosis. 2. Otherwise negative right upper quadrant sonogram. Electronically signed by: Keegan Potter On 12/20/2018 05:30:05 AM
[2018-12-20] MEDS ORDERED: NS 1,000 ML IV ONE ×2 (08:00→11:15)
[2018-12-20 08:21] LABS: ALBUMIN 2.6 GM/DL (3.2-5.2); ALT/SGPT 16 U/L (12-78); BILIRUBIN,DIRECT < 0.1 MG/DL (0.0-0.2); BILIRUBIN,TOTAL 0.2 MG/DL (0.2-1.0); LIPASE 110 U/L (73-393)
--- NOTE | 2018-12-20 10:55 | REP ---
MRI ABDOMEN AND PELVIS WITHOUT CONTRAST: HISTORY: Appendicitis. TECHNIQUE: Axial coronal and sagittal imaging planes utilized with T1- and T2-weighted scans obtained with and without fat saturation. MRI FINDINGS: A single intrauterine gestation is seen in a breech lie. There is mild bilateral hydronephrosis, right greater than left. No filling defect is seen in the ureters on either side. There is a corpus luteum cyst in the maternal left ovary which measures 2.9 cm in greatest diameter. There is no evidence of appendicitis. Normal appendix is seen below the cecum in the right lower quadrant. No inflammatory changes are noted. There is a small amount of physiologic fluid in the cul-de-sac. IMPRESSION: No MRI evidence of appendicitis. Normal appendix is seen. Jamin breech lie. Bilateral hydronephrosis, moderate on the right, mild on the left. Otherwise negative. Electronically Signed by Humberto White MD 12/20/2018 07:37 P
[2018-12-20] MEDS ORDERED: cefTRIAXone SOD 1 GM in D5W MINI-BAG PLUS 50 ML IV ONE (11:00)
[2018-12-20] MEDS ORDERED: KETOROLAC 30 MG/ML VIAL (J1885) IV ONE (11:15)
[2018-12-20 13:35] VITALS: BP 127/65
--- NOTE | 2018-12-20 13:59 | REP ---
URINARY TRACT SONOGRAPHY: HISTORY: 21 weeks gestation. Evaluate for kidney stones. FINDINGS: Scanning at the level of the urinary bladder confirms the presence of emptying ureteral jets from both ureters on color Doppler interrogation. heart rate is recorded at 150 beats per minute. Moderate right-sided hydronephrosis is seen. There does not appear to be hydronephrosis of the left kidney. Renal cortical echogenicity pattern is normal. No mass lesion is seen on either side. Right renal dimensions are 12.4 x 5.2 x 5.5 cm. The left kidney measures 11.9 x 4.6 x 4.5 cm. Doppler resistive indices are 0.8 on the right and 0.7 on the left. IMPRESSION: Moderate right-sided hydronephrosis is seen; no stone is observed. Emptying ureteral jets are confirmed on color Doppler interrogation of the bladder bilaterally. This excludes complete ureteral obstruction. Electronically Signed by Hubmerto Whtie MD 12/20/2018 07:41 P
[2018-12-20] MEDS ORDERED: KETOROLAC 30 MG/ML VIAL (J1885) IV PRN (14:30)
[2018-12-20] MEDS: PRENATAL VITAMINS CHEWABLE TABLET PO SCH (15:14)
[2018-12-20] MEDS: NS 1,000 ML IV SCH ×2 (15:14→21:30)
[2018-12-20] MEDS: TAMSULOSIN 0.4 MG CAP PO SCH (15:14)
[2018-12-20 16:00] VITALS: BP 121/63
[2018-12-20 20:00] VITALS: BP 116/58
--- NOTE | 2018-12-20 20:05 | HPEPDOC ---
General Date of Admission Dec 20, 2018 at 11:00 Date of Service: Dec 20, 2018 Primary Care Physician: Rajwinder Valentin MD Attending Physician: Rajwinder Valentin MD Chief Complaint 18y/o @ 21+1 wks by 11 wk US ([id number]) presenting to ED with complaint of right flank pain. Source: Patient Exam Limitations: No limitations Timing/Duration: Day(s) Severity: Severe Associated Symptoms: Nausea History of Present Illness OB Considerations: Heart murmur - followed by Cardiology Low back pain Patient reports that two nights ago at 0400 she had acute onset right flank pain which resolved over a period of hours. The night before admission, patient had recurrence of pain, which was more severe 12/12. This morning, the pain returned from 0930 to noon, thus prompting trip to emergency care. Patient reports some nausea due to severity of pain. She denies gross hematuria, chest pain, palpitations, shortness of breathe, she denies dysuria. Further denies contractions, LOF, vaginal bleeding. She endorses active movement. She has not had any fevers/chills at home. Home Medications Scheduled No.137/Iron/Folic Acd ( Vitamin Tablet) 1 Each Tablet, 1 TAB PO DAILY, (Reported) Allergies Coded Allergies: No Known Allergies (Unverified , 07/06/18) Past Medical History Medical History Heart murmur, followed by cardiology Surgical History WTE x4, D&C Family History Significant Family History: Cancer (Paternal grandmother with h/o breast and lung cancer), Other (Sibling with heart murmur) Social History * Smoker: Denies Alcohol: Denies Drugs: denies Recent Travel/Sick Contacts: Denies: Recent travel, Recent sick contacts Psychosocial History: No pertinent psych hx Denies tobacco, alcohol or illicit drug use. Spouse at training. A-FIB/CHADSVASC A-FIB History Current/History of A-Fib/PAF?: No Current PO Anticoag Therapy: No Age/Risk Factor Scoring CHADSVASC: CHADSVASC Response (Comments) Value Age Risk Factor Age < 65 years old 0 Gender Risk Factor Female 1 Hx of CHF No 0 Hx of HTN No 0 Hx of Stroke/TIA/or VTE No 0 Hx of Diabetes No 0 Hx of Vascular Disease No 0 Total 1 Treatment Treatment ordered: NONE Review of Systems Constitutional: Denies: Chills, Fever, Malaise, Night Sweats, Weakness, Fatigue, Weight Loss, Lethargy, Other Eyes: Denies: Pain, Vision change, Conjunctivae inflammation, Eyelid inflammation, Redness, Other ENT: Denies: Head Aches, Ear Pain, Dysphagia, Sinus Congestion, Post Nasal Drip, Sore Throat, Epistaxis, Other Symptoms Pulmonary: Denies: Dyspnea, Cough, Pleuritic Chest Pain, Other Symptoms Cardiovascular: Denies: Chest Pain, Palpitations, Orthopnea, Paroxysmal Noc. Dyspnea, Edema, Lt Headedness, Other Symptoms Gastrointestinal: Denies: Nausea, Vomiting, Abdominal Pain, Diarrhea, Constipation, Melena, Hematochezia, Other Symptoms Genitourinary: Denies: Dysuria, Frequency, Incontinence, Hematuria, Retention, Other Symptoms Hematologic: Denies: Bruising, Bleeding Excessively, Petecchia, Purpura, Enlarged Lymph Nodes, Other Hematologic Neurological: Denies: Weakness, Numbness, Incoordination, Change in speech, Confusion, Seizures, Other Symptoms Psych: Denies: Mood Normal, Anxiety, Depression, Memory Issues, Thoughts of Self Harm, Anger, Thoughts of Harming Other, Other Psych Physical Examination General Exam: Positive: Alert, Cooperative, No Acute Distress Eye Exam: Positive: PERRLA, Conjunctiva & lids normal ENT Exam: Positive: Atraumatic, Mucous membr. moist/pink Neck Exam: Positive: Supple Chest Exam: Positive: Clear to auscultation, Normal air movement Heart Exam: Positive: Rate Normal Abdomen Exam: Positive: Other (Gravid, soft, NT. CVA tenderness on right flank.) Extremity Exam: Negative: Tenderness, Swelling, Other Skin Exam: Positive: Nl turgor and temperature; Negative: Rash, Lesion Neuro Exam: Positive: Normal Gait Psych Exam: Positive: Mental status NL Vital Signs Vital Signs Date Time Temp Pulse Resp B/P (MAP) Pulse Ox O2 Delivery O2 Flow Rate FiO2 12/20/18 16:00 98.2 83 18 121/63 (82) 98 Room Air Weight (kg): 66.82 BMI (kg): 23.8 Laboratory Data Labs 24H Laboratory Tests 2 12/20/18 04:05: Immature Granulocyte % (Auto) 0.7, Neutrophils (%) (Auto) 69.4H, Lymphocytes (%) (Auto) 24.2, Monocytes (%) (Auto) 4.9, Eosinophils (%) (Auto) 0.4, Basophils (%) (Auto) 0.4, Neutrophils # (Auto) 7.0, Lymphocytes # (Auto) 2.4, Monocytes # (Auto) 0.5, Eosinophils # (Auto) 0.0, Basophils # (Auto) 0.0, Nucleated Red Blood Cells % (auto) 0.0, Total Bilirubin 0.2, Direct Bilirubin < 0.1, Aspartate Amino Transf (AST/SGOT) 10, Alanine Aminotransferase (ALT/SGPT) 16, Alkaline Phosphatase 68, Total Protein 6.0L, Albumin 2.6L, Albumin/Globulin Ratio 0.76L, Lipase 110 12/20/18 08:10: POC Glucose (Misc Panel) 83, POC Sodium (Misc Panel) 138, POC Potassium (Misc Panel) 3.7, POC Chloride (Misc Panel) 105, POC Total CO2 (Misc Panel) 22.0L, POC Blood Urea Nitrogen (Misc Panel 3L, POC Ionized Calcium (Misc Panel) 4.7, POC Creatinine (Misc Panel) 0.5L, POC Hematocrit (Misc Panel) 29.0L 12/20/18 09:41: Urine Color YELLOW, Urine Appearance CLOUDYH, Urine pH 7.0, Urine Specific [place] 1.008, Urine Protein NEGATIVE, Urine Glucose (UA) NEGATIVE, Urine Ketones NEGATIVE, Urine Blood NEGATIVE, Urine Nitrite NEGATIVE, Urine Bilirubin NEGATIVE, Urine Urobilinogen 0.2, Urine Leukocyte Esterase 3+H, Urine WBC (Auto) 30H, Urine RBC (Auto) 13H, Urine Hyaline Casts (Auto) 0, Urine Bacteria (Auto) 1+H, Urine Squamous Epithelial Cells 18, Urine Mucus (Auto) SMALL, Urine Sperm (Auto) CBC/BMP Laboratory Tests 12/20/18 04:05 Microbiology Microbiology 12/20/18 Blood Culture, Received Pending 12/20/18 Blood Culture, Received Pending 12/20/18 Urine Culture, Received Pending RAD Interpretation Rad Actions: Report Reviewed, Discussed with the pt Assessment/Plan 18y/o @ 21+1 wks admitted for concern of infected kidney stone. -UA with 18 squams but with leuk esterase, blood and bacteria. Suspicious for UTI vs. dirty catch -Renal ultrasound with moderate hydronephrosis but no clear kidney stones seen Plan / VTE VTE Prophylaxis Ordered?: No VTE Exclusion Mechanical Proph: Low Risk for VTE VTE Exclusion Pharmacological: At Low Risk for VTE Plan Plan -PNV daily -Tamsilosin 0.4mg daily -IVF 125cc/hr -Ceftriaxone 1g/24 hours -Urology consulted -Toradol 30mg IV q6 hours PRN for pain -Daily doptones -Will observe patient overnight, if no persistence of severe colicky pain, will discharge tomorrow on oral Keflex and await cultures Disposition Anticipate discharge tomorrow if continues to do well clinically IVF: Continue Diet: Advance Activity: Encourage Ambulation Medications: Change to PO Anticipated Discharge: Home Rajwinder Valentin MD Dec 20, 2018 20:05
--- NOTE | 2018-12-20 20:33 | CR ---
DATE OF CONSULTATION: 12/20/2018 CONSULTING PHYSICIAN: Dr. Rajwinder Valentin REASON FOR CONSULTATION: Right hydronephrosis with intrauterine . HISTORY: This 18-year-old private first class who is 1, para 0 at 21 weeks estimated gestational age developed intermittent colicky right-sided pain over the last 48 hours, associated with nausea and no vomiting. She has had no temperature elevations. Her urinalysis showed a large number of squamous cells but also showed some white cells and red cells. She has otherwise had an uneventful . 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 Her is also stationed at [employer]. She has no known drug allergies. There is a family history of stones in her brother. Family history also positive for cancer. Past medical history is of an episode of mild rhabdomyolysis in July of 2018. At that time, a CAT scan was done, this showed no sign of stones. A renal ultrasound done on arrival here showed mild hydroureteronephrosis. No stone was seen. SOCIAL HISTORY: . Currently nonsmoking, nondrinking. No drug use. REVIEW OF SYSTEMS: In general, she has had no weight loss. No other episodes of colicky pain. Her has been uneventful. She denies skin issues. She denies dyspnea, asthma. She has no cardiac or vascular issues. She has had no further episodes of rhabdomyolysis. She is not currently having significant pain. She is hungry. She denies dysuria, frequency, or urgency. PHYSICAL EXAMINATION: Temperature 98.2, pulse 83, respirations 18, blood pressure 121/63. In general, she is awake, alert, oriented and cooperative. Chest: Clear. Cardiac exam: Regular rate and rhythm. Abdominal exam: Soft with tenderness in the right flank and right lower quadrant. The uterus is palpable at the umbilicus. There is no involuntary guarding. She has mild tenderness on direct palpation. Extremity exam: Unremarkable. Neurologic exam: Nonfocal. IMPRESSION: Right-sided colicky pain associated with moderate hydronephrosis. Should this be related to the presence of stone, it is unlikely that she has a stone of nonpassable size given a negative CT scan only 5 months ago. It is possible that she has a urinary infection, but the absence of fever also makes this unlikely. Culture currently pending. Hydronephrosis of is most likely. PLAN: I advised observation and pain control for now. Stenting could be considered if her pain is intractable. Check culture results. Thank you for this consult. I will be following the patient with you.
[2018-12-21] VITALS: BP 101/57
[2018-12-21 04:00] VITALS: BP 103/53
[2018-12-21] MEDS: NS 1,000 ML IV SCH (04:42)
[2018-12-21 08:00] VITALS: BP 89/45
[2018-12-21] MEDS: PRENATAL VITAMINS CHEWABLE TABLET PO SCH (08:01)
[2018-12-21] MEDS: TAMSULOSIN 0.4 MG CAP PO SCH (08:01)
--- NOTE | 2018-12-21 09:28 | DS.PDOC ---
Discharge Summary General Date of Admission Dec 20, 2018 at 11:00 Date of Discharge [id number] Attending Physician: Rajwinder Valentin MD Specialist/Consultants Involve: Ezra Gu DO Discharge Summary PROCEDURES PERFORMED DURING STAY: RUQ US, Renal US, Pelvic US, Pelvic MRI ADMITTING DIAGNOSES: 1. Hydronephrosis 2. Intrauterine @ 21+1 wks DISCHARGE DIAGNOSES: 1. Hydronephrosis 2. Intrauterine @ 21+2 wks COMPLICATIONS/CHIEF COMPLAINT: Hydronephrosis,. HISTORY OF PRESENT ILLNESS: OB Considerations: Heart murmur - followed by Cardiology Low back pain Patient reports that two nights ago at 0400 she had acute onset right flank pain which resolved over a period of hours. The night before admission, patient had recurrence of pain, which was more severe 12/12. This morning, the pain returned from 0930 to noon, thus prompting trip to emergency care. Patient reports some nausea due to severity of pain. She denies gross hematuria, chest pain, palpitations, shortness of breathe, she denies dysuria. Further denies contractions, LOF, vaginal bleeding. She endorses active movement. She has not had any fevers/chills at home. HOSPITAL COURSE: Patient was admitted overnight for observation. She received single dose of Toradol overnight and reports pain was well controlled. Dr. Gu from urology saw the patient, and felt her findings were more consistent with hydronephrosis of . She received single dose of Ceftriaxone IV in the ED yesterday, however, her urine culture has resulted negative. DISCHARGE MEDICATIONS: Please see below. ALLERGIES: Please see below. PHYSICAL EXAMINATION ON DISCHARGE: VITAL SIGNS: Please see below. GENERAL: Alert and oriented HEENT: Normocephalic, atraumatic CARDIOVASCULAR EXAMINATION: Systolic murmur noted. Regular rate. RESPIRATORY EXAMINATION: CTAB, no crackles, wheezes or rhonchi. Upper respiratory congestion. ABDOMINAL EXAMINATION: Soft, NT/ND. EXTREMITIES: No edema, erythema or calf tenderness SKIN: No rash NEUROLOGICAL EXAMINATION: Moving all four extremities. PSYCHIATRIC EXAMINATION: Normal affect FHR: 150s LABORATORY DATA: Please see below. IMAGING: Renal ultrasound with moderate right hydronephrosis. No stone noted. PROGNOSIS: Improved. ACTIVITY: As tolerated. DIET: Regular DISCHARGE PLAN: Discharge to home DISPOSITION: DISCHARGE INSTRUCTIONS: 1. Strain your urine to check for kidney stones 2. If pain returns, take Tylenol 1,000mg and Ibuprofen 800mg. If not resolved, return to care 3. F/u at your OB visit at [facility] on Sunday, [id number] ITEMS TO FOLLOWUP ON ON OUTPATIENT: 1. N/a DISCHARGE CONDITION: Stable TIME SPENT ON DISCHARGE: Greater than 15 minutes. Vital Signs/I&Os Vital Signs Date Time Temp Pulse Resp B/P (MAP) Pulse Ox O2 Delivery O2 Flow Rate FiO2 12/21/18 08:00 98.3 83 18 89/45 (60) 99 Room Air I&O- Last 24 Hours up to 6 AM 12/21/18 05:59 Intake Total 4150 ml Output Total 1800 ml Balance 2350 ml Laboratory Data Labs 24H Laboratory Tests 2 12/20/18 09:41: Urine Color YELLOW, Urine Appearance CLOUDYH, Urine pH 7.0, Urine Specific [place] 1.008, Urine Protein NEGATIVE, Urine Glucose (UA) NEGATIVE, Urine Ketones NEGATIVE, Urine Blood NEGATIVE, Urine Nitrite NEGATIVE, Urine Bilirubin NEGATIVE, Urine Urobilinogen 0.2, Urine Leukocyte Esterase 3+H, Urine WBC (Auto) 30H, Urine RBC (Auto) 13H, Urine Hyaline Casts (Auto) 0, Urine Bacteria (Auto) 1+H, Urine Squamous Epithelial Cells 18, Urine Mucus (Auto) SMALL, Urine Sperm (Auto) Microbiology Microbiology 12/20/18 Blood Culture, Received Pending 12/20/18 Blood Culture, Received Pending 12/20/18 Urine Culture - Final, Complete Discharge Medications Scheduled No.137/Iron/Folic Acd ( Vitamin Tablet) 1 Each Tablet, 1 TAB PO DAILY, (Reported) Allergies Coded Allergies: No Known Allergies (Unverified , 07/06/18) Rajwinder Valentin MD Dec 21, 2018 09:28
[2018-12-21] MEDS ORDERED: cefTRIAXone SOD 1 GM in D5W MINI-BAG PLUS 50 ML IV SCH (11:00)
== END 2018-12-21 10:30 | disposition home or self-care (01) | DRG 832 ==
LOC: M ED 02:59 → M ED INP 11:00 → M PED 13:20
PROVIDERS: ADMIT Obstetrics & Gynecology; ATTEND Obstetrics & Gynecology
DX: O23.42 Unspecified infection of urinary tract in pregnancy, second trimester (principal); N13.30 Unspecified hydronephrosis; Z3A.21 21 weeks gestation of pregnancy

== ENCOUNTER 2019-03-23 23:53 | Outpatient (CLI) | payer OTHER ==
[~2019-03-23] VITALS: Ht 167.6 cm; Wt 77.4 kg
[2019-03-24] MEDS ORDERED: VITA500C24 PO (00:17)
[2019-03-24] MEDS ORDERED: IRON325T9 PO (00:17)
[2019-03-24 00:18] VITALS: BP 135/75
[2019-03-24 01:35] VITALS: BP 131/67
--- NOTE | 2019-03-24 02:29 | IPNPDOC ---
Text Note Date of Service The patient was seen on 03/24/19. NOTE Triage Note Kedar is a 18yo with SIUP at approx 34wk who comes in tonight for a few complaints. She states that she has had some abdominal cramping, a little nausea, some sharp abdominal pains, some looser stools, increased urinary frequency over the last few hours, and pinkish vaginal discharge that she has had for a couple weeks. She denies any sick contacts or eating any strange/new foods. She tends toward constipation because she is taking iron for anemia, so looser stools is a definite change from recent. She denies regular ctx or LOF. No burning with urination. No emesis. No fevers/chills. No cough/congestion. She feels good movement. 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 Vitals wnl, benign exam. Mony ssuring assessment. Urinalysis wnl. Plan: -Safe for discharge home -Discussed increasing hydration and BRAT diet -Discussed return precautions -Keep next routine OB appt in [address] Deedee Shaw MD VS,Greg, I+O VSGreg, I+O Vital Signs Date Time Temp Pulse Resp B/P (MAP) Pulse Ox O2 Delivery O2 Flow Rate FiO2 03/24/19 01:35 85 16 131/67 (88) 03/24/19 00:18 98.3 Deedee Shaw MD Mar 24, 2019 02:29
== END 2019-03-24 02:31 | disposition home or self-care (01) ==
LOC: M LDO 23:53
PROVIDERS: ATTEND Obstetrics & Gynecology
DX: O99.613 Diseases of the digestive system complicating pregnancy, third trimester (principal); K52.9 Noninfective gastroenteritis and colitis, unspecified; Z3A.34 34 weeks gestation of pregnancy
CPT/HCPCS: 59025; 81001; 87086; G0378; G0463

== ENCOUNTER 2019-04-24 19:47 | Outpatient (CLI) | payer OTHER ==
[~2019-04-24] VITALS: Ht 167.6 cm; Wt 79.8 kg
[~2019-04-24 19:47] MED LIST changes: +IRON325T9 PO; +VITA500C24 PO
[2019-04-24 20:15] VITALS: BP 142/78
[2019-04-24 20:30] VITALS: BP 128/61
[2019-04-24] MEDS ORDERED: VITA400T15 PO (20:32)
[2019-04-24 20:45] VITALS: BP 128/64
--- NOTE | 2019-04-24 21:18 | IPNPDOC ---
Text Note Date of Service The patient was seen on 04/24/19. NOTE Patient is a 18 yo @ 39wks gestation presents with concern for loosing her mucus plug and occasional right sided pain. denies LOF/VB. +FM. Vitals: elevated on presentation with normal repeats. NAD, laying in bed abd: gravid, soft, nt, cephalic fht: 125/mod inocencio/pos accel/no decel toco: rare contraction a/p patient @ 39wks, normal exam, not in labor. discussed s/s of labor. return precautions given. f/u with regularly scheduled clinic appointment. Breanna, DO VS,Esequielbone, I+O VS, Fishbone, I+O Vital Signs Date Time Temp Pulse Resp B/P (MAP) Pulse Ox O2 Delivery O2 Flow Rate FiO2 04/24/19 20:45 72 128/64 (85) 04/24/19 20:14 98.3 18 LILLIAN HIDALGO DO Apr 24, 2019 21:18
== END 2019-04-24 21:20 | disposition home or self-care (01) ==
LOC: M LDO 19:47
PROVIDERS: ATTEND Obstetrics & Gynecology
DX: O26.893 Other specified pregnancy related conditions, third trimester (principal); R10.30 Lower abdominal pain, unspecified; Z3A.39 39 weeks gestation of pregnancy
CPT/HCPCS: 59025; G0378; G0463

== ENCOUNTER 2019-04-29 16:43 | Outpatient (CLI) | payer OTHER ==
[~2019-04-29] VITALS: Ht 167.6 cm; Wt 80.3 kg
[~2019-04-29 16:43] MED LIST changes: +VITA400T15 PO
[2019-04-29 17:29] VITALS: BP 115/61
[2019-04-29] MEDS ORDERED: MIRA3350 PO (17:35)
[2019-04-29 18:03] VITALS: BP 122/74
--- NOTE | 2019-04-29 19:47 | HPE ---
DATE OF ADMISSION: 04/29/2019 :. HISTORY: A 18-year-old 2, para 0, abortia 1, last menstrual period (LMP) 07/16/2018,. estimated date of confinement (EDC) 05/01/2019, at 39 and 4 weeks of gestation with a history of questionable spontaneous rupture of membranes. RISK FACTORS: She has anemia, has had a heart murmur and is being seen by cardiology PAST HISTORY: 2016, spontaneous at 6 weeks with dilation and curettage (D C). Labs are A positive, HIV negative, hepatitis negative, rapid plasma reagin (RPR) negative, rubella immune. Varicella immune. Urine negative. Gonorrhea and chlamydia negative. One hour glucose 105. Blood pressure 122/74, respirations 16, pulse 86, temperature is 98.4. Urine is not available. PHYSICAL EXAMINATION: No acute distress. Symphysis fundus height is 39, vertex. Category one strip. No contractions, moderate variability. No decelerations. Sterile speculum examination: No evidence of pooling or blood or discharge in the vagina or from the cervix. Nitrazine was negative. Bacterial vaginosis (BV) was negative. Yeast was negative. No ferning was noted. Cervix was closed posterior 50%, -3 station. The patient was given precautions. PLAN: Discharge without delivery and has an appointment for her Tdap tomorrow at the clinic.
== END 2019-04-29 19:00 | disposition home or self-care (01) ==
LOC: M LDO 16:43
PROVIDERS: ATTEND Obstetrics & Gynecology
DX: O26.893 Other specified pregnancy related conditions, third trimester (principal); Z3A.39 39 weeks gestation of pregnancy; O99.013 Anemia complicating pregnancy, third trimester; D64.9 Anemia, unspecified; O99.413 Diseases of the circulatory system complicating pregnancy, third trimester; R01.1 Cardiac murmur, unspecified; N89.8 Other specified noninflammatory disorders of vagina; Z79.899 Other long term (current) drug therapy
CPT/HCPCS: 59025; G0378; G0463

== ENCOUNTER 2019-04-30 07:02 | Inpatient (IN) | payer OTHER ==
[~2019-04-30] VITALS: Ht 167.6 cm; Wt 82.6 kg
[2019-04-30] VITALS (27 sets, daily range): BP systolic 107–160; BP diastolic 54–95
[~2019-04-30 07:02] MED LIST changes: +MIRA3350 PO
[2019-04-30] MEDS ORDERED: LACTATED RINGER'S 1000 ML IV ONE (07:45)
[2019-04-30] MEDS: LR 1,000 ML IV SCH ×3 (07:56→16:07)
[2019-04-30] MEDS ORDERED: PROMETHAZINE INJ 25 MG/ML VIAL (J2550) IV PRN (08:15)
[2019-04-30] MEDS ORDERED: SIMETHICONE 80 MG CHEW TAB PO PRN (08:15)
[2019-04-30] MEDS ORDERED: ACETAMINOPHEN 500 MG TAB PO PRN (08:15)
[2019-04-30] MEDS ORDERED: MOM 30ML SUSPENSION UDC PO PRN (08:15)
[2019-04-30] MEDS ORDERED: CALCIUM CARBONATE 500 MG CHEW U/D PO PRN (08:15)
[2019-04-30] MEDS: BUTORPHANOL 2 MG/ML INJ (J0595) IV PRN ×2 (08:50→11:08)
[2019-04-30 08:58] LABS: HEMATOCRIT 36.6 % (36.0-47.0); HEMOGLOBIN 12.1 g/dl (12.0-15.5); MEAN CORPUSCULAR HEMOGLOBIN 30.8 pg (27.0-33.0); MEAN CORPUSCULAR HGB CONC 33.1 g/dl (32.0-36.5); MEAN CORPUSCULAR VOLUME 93.1 fl (80.0-96.0); PLATELET COUNT, AUTOMATED 210 10^3/uL (150-450); RED BLOOD COUNT 3.93 10^6/uL (4.00-5.40); WHITE BLOOD COUNT 13.2 10^3/uL (4.0-10.0)
--- NOTE | 2019-04-30 10:45 | HPE ---
DATE OF ADMISSION: 04/30/2019 This lady is a 18-year-old 2, para 0, abortio 1, last menstrual period (LMP) 07/16/2018, estimated date of confinement (EDC) 05/01/2019. She is at 39 and 5 weeks of gestation with history of active labor since 0200 hours, had a spontaneous rupture of membrane when arrival with meconium stained particulate and in spontaneous labor. PAST HISTORY: 2016 - spontaneous with dilation and curettage. RISK FACTOR: She has anemia and she has a heart murmur for which she was supposed to have seen cardiology. LABS: A+, HIV negative, hep negative, RPR negative, rubella immune. Varicella immune. Urine negative. Gonorrhea and chlamydia negative, 1-hour glucose was 105. GBS is negative. PHYSICAL EXAMINATION: On examination, distressed female. Symphysis fundus height is 40, vertex presenting occiput posterior (OP) posterior, 1 cm, -3 station, 50% effaced. Blood pressure 128/61, respirations 16, pulse 76 and temperature 98.8. The rest examination is unremarkable. Normocephalic, atraumatic. Neck: Full range of motion. Pupils equal and reactive to light. Distal pulses symmetric. No evidence of deep venous thrombosis (DVT), pulmonary embolus (PE) or superficial phlebitis. Chest is clear bilaterally bases. No wheezes or rhonchi. No costovertebral angle (CVA) tenderness. Abdomen: Soft in between contractions, four-quadrant bowel sounds are noted. Appropriate symphysis fundus height. She has no rashes, lesions or pruritus. No arthralgia, myalgia. No complaint joint pain. No complaint cough, wheeze, shortness of breath or dyspnea on exertion. No bleeding. No bruising. She is normocephalic. No incontinence, urgency or frequency. No nausea, vomiting, diarrhea or constipation. No diabetic issues. No heat or cold issues. Past medical history is unremarkable. 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 Her cardiac murmur. She has seen cardiology and they believe that it is a physiologic murmur. She does not smoke, drink abuse drugs. No domestic violence. 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 No allergies. Presently on vitamins. We discussed the consent for vaginal delivery, delivery through the vagina with the possibility of assistance of forceps or vacuum devices if needed for maternal indications, forceps or vacuum is a device that can assist with vaginal delivery when normal pushing efforts cannot be achieved on their own or when delivery is needed in an emergency for baby's well-being. Medications may be used to induce or augment labor in order achieve vaginal delivery. An episiotomy may be required to help the baby deliver vaginally. May also require repair of lacerations or tears of the vagina, vulva that are caused by delivery. In some cases emergencies can arise that we need to do an emergency section because of life-threatening issues for mother and baby. Your provider will discuss with you the reason for same. However, may not be time to actually consent on paper. section is delivery through the abdomen and is done only for life-threatening situations or indicated issues. Risk of vaginal delivery include not limited to bleeding, infection, injury to vagina, pelvic structures, injury to baby, damage to the uterus, reaction to anesthesia, uterine rupture. Uterus of hysterectomy though remote for life-threatening bleeding issues. Medications may be used to induce or augment labor, possibly hysterectomy and hemorrhage. There may be heart rate abnormalities and need for emergency section. There also may be perineal and vaginal lacerations, risk of urinary or bowel incontinence, increased risk of injury to the baby with bruising, scratches, hematomas of the head or intracranial bleed. The patient expressed understanding in between contractions and all questions were answered. A 30-minute discussion.
[2019-04-30] MEDS ORDERED: FENTANYL 2MCG/ML ROPIVACAINE 0.2% IN 0.9% NACL 100ML IVBAG As Ordered ONE (12:42)
[2019-04-30] MEDS ORDERED: OXYTOCIN 30 UNITS IN 0.9% NaCl 500ML IV BAG (J2590) As Ordered ONE (12:53)
--- NOTE | 2019-04-30 12:57 | IPNPDOC ---
Text Note Date of Service The patient was seen on 04/30/19. NOTE Patient very uncomfortable with each contraction but falls asleep in between. FHT: Category 1, 130s, reactive, no decels, contractions q3-5min. SVE 5/100/0 mostly on left side. Patient desires epidural. Continue expectant management. Fetus reassuring. VS,Fishbone, I+O VS, Fishbone, I+O Laboratory Tests 04/30/19 08:31 Vital Signs Date Time Temp Pulse Resp B/P (MAP) Pulse Ox O2 Delivery O2 Flow Rate FiO2 04/30/19 12:07 98.4 88 16 160/79 (106) Katie Cm MD Apr 30, 2019 12:57
[2019-04-30] MEDS ORDERED: ePHEDrine SULFATE 25 MG/5 ML(5MG/ML) SYRINGE IV PRN (13:00)
[2019-04-30] MEDS ORDERED: ONDANSETRON 4MG/2ML VIAL (J2405) IV PRN (13:00)
[2019-04-30] MEDS ORDERED: EPIDURAL COMMENT XX SCH (13:00)
[2019-04-30] MEDS ORDERED: REFRIGERATOR IV KEYS XX PRN (13:00)
[2019-04-30] MEDS ORDERED: EPIDURAL/PCA KEYS XX PRN (13:00)
[2019-04-30] MEDS ORDERED: diphenhydrAMINE INJ 50MG/ML VIAL (J1200) IV PRN (13:00)
[2019-04-30] MEDS ORDERED: NALOXONE INJ 0.4 MG/1 ML VIAL (J2310) IV PRN (13:00)
[2019-04-30] MEDS: FENTANYL/ROPIVACAINE/NACL BAG 100 ML EPIDURAL SCH ×2 (13:00→23:00)
[2019-04-30] MEDS ORDERED: LACTATED RINGER'S 1000 ML IV PRN (13:00)
[2019-04-30 17:34] LABS: CORD GAS HCO3 A 21.1 MEQ/L; CORD GAS O2 SAT A 23.2 %; CORD GAS PCO2 A 62.3 mmHg; CORD GAS PH A 7.147 UNITS; CORD GAS PO2 A 17.4 mmHg; CORD GAS SBC A 15.8 MEQ/L
[2019-04-30 17:35] LABS: CORD GAS ABE V -7.3; CORD GAS HCO3 V 18.7 MEQ/L; CORD GAS O2 SAT V 81.4 %; CORD GAS PCO2 V 39.6 mmHg; CORD GAS PH V 7.292 UNITS; CORD GAS PO2 V 41.1 mmHg; CORD GAS SBC V 18.3 MEQ/L; CORD GAS TCO2 V 19.9 MEQ/L
--- NOTE | 2019-04-30 21:50 | DNPDOC ---
[facility] Delivery Note Delivery Note DATE OF DELIVERY: 04/30/2019 PREDELIVERY DIAGNOSIS: 39-. 6/7 weeks' gestation and labor. POST DELIVERY DIAGNOSIS: Delivered. PROCEDURE:. Spontaneous vaginal delivery. 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 ESTIMATED BLOOD LOSS: 250 mL. FINDINGS: 8 pound 3 ounce boy , Score 8/9, nuchal cord times 1. DELIVERY SUMMARY: Patient is a 18-year-old 2 now para 0 who was admitted to labor and delivery for active labor for 15 hours. Baby boy head was delivered without difficulty over intact perineum in EMEKA position at 1711. The nose and mouth were bulb suctioned. x1 nuchal cord was noted. The shoulders were then delivered without difficulty. Cord was then clamped x2 and cut. Infant was handed on mother's belly. Pitocin bolus was started. Perineum and vagina was inspected and found to have a right labial laceration. This was repaired with 2-0 chromic. The placenta was then delivered at 1725 spontaneously intact. Cord had a 3 vessel cord. EBL was 250mL. The vagina and perineum were reinspected and no further lacerations were found and hemostasis was good. Fundus was firm. Patient tolerated delivery well. Katie Cm MD Apr 30, 2019 21:50
[2019-05-01 06:00] VITALS: BP 129/58
--- NOTE | 2019-05-01 06:17 | IPNPDOC ---
Progress Note Date of Service: May 01, 2019 Day#: 1 Progress Note SUBJECT: Patient is a 18-year-old 1 now Para 1 status post uncomplicated spontaneous vaginal delivery with right labial laceration repair, doing well day # 1. She has been ambulating, voiding spontaneously without issue and tolerating regular diet. Breast feeding without issue. Reports lochia is like a normal period. Patient is ambulating well. [Reports some cramping with . Denies any pain. . OBJECTIVE: VITAL SIGNS: Within normal limits, afebrile. Alert and oriented times three. Breast without erythema or masses Breath sounds clear to auscultation. Heart rate: Regular rate and rhythm, no murmurs, rubs or gallops. Abdomen: Fundus firm at U-2. Soft, NTTP. Minimal lochia. Lower extremeties without edema or tenderness. ASSESSMENT: Patient is a 18-year-old 1 now Para 1 status post uncomplicated spontaneous vaginal delivery with right labial laceration repair, doing well day # 1. Vitals within normal limits, afebrile, hemodynamically stable with no evidence of infection. PLAN: 1. Continue care. 2. Tylenol and Motrin for pain. 3. Encourage breast feeding and ambulation. VS, I&O, 24H, Esequielbone Vital Signs/I&O Vital Signs Date Time Temp Pulse Resp B/P (MAP) Pulse Ox O2 Delivery O2 Flow Rate FiO2 04/30/19 20:30 99.7 116 18 133/75 (94) 98 Room Air I&O- Last 24 Hours up to 6 AM 05/01/19 06:00 Intake Total 1350 ml Output Total 2100 ml Balance -750 ml Laboratory Data 24H LABS Laboratory Tests 2 04/30/19 07:43: Serology Scanned Report Hepatitis B Testing 04/30/19 08:31: Nucleated Red Blood Cells % (auto) 0.0, Syphilis Serology NONREACTIVE 04/30/19 17:26: Cord Arterial Blood pH 7.147, Cord Arterial Blood PCO2 62.3, Cord Arterial Blood PO2 17.4, Cord Arterial Blood HCO3 21.1, Cord Arterial Blood Total CO2 23.0, Cord Arterial Blood Base Excess -9.0, Cord Arterial Base Excess (Standard 15.8, Cord Arterial Bld Oxygen Saturation 23.2, Cord Venous Blood pH 7.292, Cord Venous Blood PCO2 39.6, Cord Venous Blood PO2 41.1, Cord Venous Blood HCO3 18.7, Cord Venous Blood Total CO2 19.9, Cord Venous Base Excess (Actual) -7.3, Cord Venous Base Excess (Standard) 18.3, Cord Venous Blood Oxygen Saturation 81.4 CBC/BMP Laboratory Tests 04/30/19 08:31 Katie Cm MD May 01, 2019 06:17
[2019-05-01] MEDS ORDERED: MIRALAX *UNIT DOSE* 17GM PACKET PO PRN (08:00)
[2019-05-01] MEDS: DOCUSATE SODIUM 100 MG CAP PO SCH ×2 (08:34→21:00)
[2019-05-01] MEDS: PRENATAL VITAMINS CHEWABLE TABLET PO SCH (08:34)
[2019-05-01] MEDS: IBUPROFEN 600 MG TAB PO PRN ×2 (08:35→17:10)
--- NOTE | 2019-05-01 11:44 | IPN ---
DATE: 04/30/2019 This lady and her requested circumcision of their male . After discussing risks and benefits circumcision, the medical and nonmedical indications, penile block, aftercare and bleeding, expressed understanding of the procedure, all questions were answered, 20-minute discussion, signed the consent form. We await clearance by the automotive sales manager.
[2019-05-01 18:16] VITALS: BP 128/81
[2019-05-02] MEDS: IBUPROFEN 600 MG TAB PO PRN (04:47)
[2019-05-02 06:00] VITALS: BP 119/70
--- NOTE | 2019-05-02 07:08 | IPNPDOC ---
Progress Note Date of Service: May 02, 2019 Day#: 2 Progress Note SUBJECT: Patient is a 18-year-old 1 now Para 1 status post uncomplica raulito spontaneous vaginal delivery with right labial laceration repair, PPD # 2. She has concerns about breast feeding and requesting for consult. She has been ambulating, voiding spontaneously without issue and tolerating regular diet. Reports lochia is like a normal period. Patient is ambulating well. Plans for IUD for contraceptive. OBJECTIVE: VITAL SIGNS: Within normal limits, afebrile. Alert and oriented times three. Abdomen: Fundus firm at U-1. Soft, NTTP. LE: no edema/erythema/tenderness A/P ppd #2, doing well. breast feeding counseling. lactations consult to see patient today. discharge instructions given. discharge home today. DO Breanna VS, I&O, 24H, Fishbone Vital Signs/I&O Vital Signs Date Time Temp Pulse Resp B/P (MAP) Pulse Ox O2 Delivery O2 Flow Rate FiO2 05/02/19 06:00 97.8 68 18 119/70 (86) 05/01/19 06:00 95 Room Air LILLIAN HIDALGO DO May 02, 2019 07:08
--- NOTE | 2019-05-02 07:23 | OBDS ---
[facility] Obstetrical Discharge Sum. 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 Follow-up: 2-3 weeks visit Hospital [place]: Patient admitted at 39+5wks for premature rupture of membranes. She progressed to have a spontaneous vaginal delivery. course uncomplicated and she meets discharge criteria on day #2. LILLIAN HIDALGO DO May 02, 2019 01:55
[2019-05-02] MEDS: DOCUSATE SODIUM 100 MG CAP PO SCH (09:33)
[2019-05-02] MEDS: PRENATAL VITAMINS CHEWABLE TABLET PO SCH (09:33)
== END 2019-05-02 13:40 | disposition home or self-care (01) | DRG 807 ==
LOC: M LDO 07:02 → M LDI 07:31 → M OBS 20:01
PROVIDERS: ADMIT Obstetrics & Gynecology; ATTEND Obstetrics & Gynecology
PROC: 10E0XZZ Delivery of Products of Conception, External Approach (ICD-10-PCS; principal; 2019-04-30)
PROC: 0HQ9XZZ Repair Perineum Skin, External Approach (ICD-10-PCS; 2019-04-30)
DX: O99.02 Anemia complicating childbirth (principal); Z37.0 Single live birth; D64.9 Anemia, unspecified; O69.1XX0 Labor and delivery complicated by cord around neck, with compression, not applicable or unspecified; O70.0 First degree perineal laceration during delivery; Z3A.39 39 weeks gestation of pregnancy

== ENCOUNTER → 2020-12-07 | Outpatient (CLI) | payer OTHER ==
[~2020-12-07] MED LIST changes: +PANT40TA29 PO; -PANT40TA3 PO
== END ==
LOC: M OUTALCOH 08:22
PROVIDERS: ATTEND Psychiatry & Neurology Psychiatry
DX: Z13.39 Encounter for screening examination for other mental health and behavioral disorders (principal); F10.10 Alcohol abuse, uncomplicated

== ENCOUNTER 2020-12-17 11:22 | Outpatient (RCR) | payer OTHER | END 2021-01-02 | LOC: M OUTALCOH 11:22 | PROVIDERS: ATTEND Psychiatry & Neurology Psychiatry | DX: F10.10 Alcohol abuse, uncomplicated (principal); F17.200 Nicotine dependence, unspecified, uncomplicated ==